=== PATIENT | male | born 1940 | race Caucasian/White ===

== ENCOUNTER 2019-06-15 12:38 | Emergency (ER) | payer MEDICARE, SELFPAY ==
--- NOTE | ~2019-06-15 | XR_ITS ---
EXAMINATION: XR knee RT 3V DATE: 06/15/2019 13:19 INDICATION: Right knee injury. TECHNIQUE: 3 views of right knee were obtained. COMPARISON: None. FINDINGS: Bone alignment is normal. No fracture. There is mild tricompartmental osteoarthritis. There is a small knee joint effusion. IMPRESSION: 1. Mild right knee osteoarthritis. 2. Small right knee joint effusion. Reviewed, dictated and finalized at location A. N SAW OPERATOR
--- NOTE | ~2019-06-15 | XR_ITS ---
XR shoulder RT min 2V DATE: 06/15/2019 13:19 INDICATION: Fall. Right shoulder injury, pain TECHNIQUE: 4 views COMPARISON: None FINDINGS: No fracture or dislocation, periosteal reaction or bone destruction or abnormal soft tissue calcification. There is degenerative change of the acromion clavicular joint. IMPRESSION: No fracture or dislocation Reviewed, dictated and finalized at location B. ING ROOM OPERATOR IMPRESSION: No fracture or dislocation
--- NOTE | ~2019-06-15 | XR_ITS ---
EXAMINATION: XR chest 2V DATE: 06/15/2019 14:04 INDICATION: Fall. TECHNIQUE: Frontal and lateral views of the chest were obtained. COMPARISON: Chest 2 views 09/30/2017 FINDINGS: Calcified pulmonary nodules are consistent with old granulomatous disease. No pleural effus ion or pneumothorax. The heart size is normal. IMPRESSION: 1. No acute cardiopulmonary disease. Reviewed, dictated and finalized at location A. N ASSEMBLY MACHINE SET UP MECHANIC
--- NOTE | ~2019-06-15 | XR_ITS ---
EXAMINATION: XR hip RT min 3V w AP pelvis DATE: 06/15/2019 14:04 INDICATION: Right hip pain. Fall. TECHNIQUE: An anteroposterior view of the pelvis and 3 views of right hip were obtained. COMPARISON: Pelvis and left hip radiographs 08/07/2018 FINDINGS: There is lumbar dextroscoliosis and severe spondylosis. No fracture. There is moderate oste oarthritis of the hips. Surgical clips overlie the scrotum. IMPRESSION: 1. Moderate osteoarthritis of the hips. Reviewed, dictated and finalized at location A. [employer] OFFICER
[2019-06-15 12:50] VITALS: BP 115/63; PULSE 66; RESP 16; TEMP 37.2; O2SAT 100
--- NOTE | 2019-06-15 14:36 | ED.FALL ---
HPI - Fall General Chief Complaint: Fall Stated Complaint: fall, right arm, right shoulder, right leg pain Time Seen by Provider: 06/15/19 13:27 Source: patient and family Mode of arrival: wheelchair Limitations: dementia History of Present Illness HPI Narrative: This is a 78 year old male that presents to the ER after a fall last night. Patient with history of Parkinson's and dementia. Patient is supposed to use a walker, but was not using it last night. Reports he got up in the middle of the night to use the restroom and lost his balance. Patient's found him lying on the floor on his right side. Denies any head trauma. Patient did not lose consciousness. Since the fall he had been complaining of some pain in his right shoulder. also reports he was having some trouble walking. Denies vision changes, vomiting, numbness or weakness. Related Data Home Medications Medication Instructions Recorded Confirmed aspirin 81 mg tablet,delayed 81 mg PO DAILY 03/09/19 release latanoprost 0.005 % eye drops 1 drop EACH EYE QPM 03/09/19 melatonin 3 mg capsule 6 mg PO DAILY PRN cap 03/09/19 memantine 10 mg tablet 10 mg PO BID 03/09/19 carbidopa 25 mg-levodopa 100 mg 2 tablet PO TID tablet 03/13/19 tablet donepezil 10 mg tablet 10 mg PO QAM tablet 06/12/19 lisinopril 10 mg tablet 5 mg PO DAILY tablet 06/12/19 quetiapine 25 mg tablet 25 mg PO BID tablet 06/12/19 06/12/19 Allergies Allergy/AdvReac Type Severity Reaction Status Date / Time oxycodone Allergy Unknown Unknown Verified 06/12/19 17:01 Review of Systems Review of Systems: Narrative: CONSTITUTIONAL: Denies fever EYES: Denies visual changes CARDIOVASCULAR: Denies chest pain RESPIRATORY: Denies dyspnea. GASTROINTESTINAL: Denies vomiting MUSCULOSKELETAL: Reports joint pain and myalgia. Denies back pain NEUROLOGIC: Denies headache, numbness, or weakness. All systems reviewed & are unremarkable except as noted in HPI and below PMFSH Past Medical History Medical History (Updated 06/15/19 @ 14:52 by Wandy De Santiago PA-C) History of Parkinson's disease Hypertension Surgical History Surgical History (Updated 06/12/19 @ 17:07 by Umm King CMA) History of prostate surgery Previous back surgery Social History Social History (Updated 06/12/19 @ 17:06 by Umm King CMA) Smoking status: Former smoker Second hand tobacco smoke exposure: No Smoking end date: 04/26/78 Alcohol intake: current Substance use: never Substance use type: does not use Gender identity (if verbalized by the patient): Male Spiritual care concerns: Yes Agree to blood products: Yes Exam Narrative: Exam Narrative: GENERAL: Elderly, well-nourished, and in no acute distress. HEAD: Normocephalic, atraumatic. EYES: PERRLA and EOMI. ENT: Nares clear, no rhinorrhea or epistaxis. Mucous membranes moist. Oropharynx without tonsillar hypertrophy exudate or other lesions. Bilateral TMs pearly mari non-bulging NECK: Supple. No adenopathy or masses. No midline spinal tenderness CHEST: Clear to auscultation. No respiratory distress. No wheezes rales or rhonchi HEART: Regular rate and rhythm. No murmur heard. Normal peripheral pulses. ABDOMEN: Soft, nontender, nondistended, normal active bowel sounds. BACK: No midline spinal tenderness EXTREMITIES: Normal range of motion. No edema or obvious deformity. SKIN: Warm, dry, no rash. NEURO: No focal deficits. Alert and oriented x3. CN II-XII grossly intact PSYCH: Normal mood and affect Course Vital Signs Vital signs: Vital Signs Temperature 98.9 F 06/15/19 12:50 Pulse Rate 66 06/15/19 12:50 Respiratory Rate 16 06/15/19 12:50 Blood Pressure 115/63 06/15/19 12:50 Pulse Oximetry 100 06/15/19 12:50 Temperature 98.9 F 06/15/19 12:50 Pulse Rate 66 06/15/19 12:50 Respiratory Rate 16 06/15/19 12:50 Blood Pressure 115/63 06/15/19 12:50 Pulse Oximetry 100 06/15/19 12:50 MDM - Fal
[2019-06-15 15:10] VITALS: BP 164/48; PULSE 65; RESP 16; TEMP 37.4; O2SAT 100
== END 2019-06-15 15:11 | disposition home or self-care (01) ==
PROVIDERS: Emergency Provider Emergency Medicine; PCP Family Medicine
DX: M25.511 Pain in right shoulder (principal); G20 Parkinson's disease; F03.90 Unspecified dementia, unspecified severity, without behavioral disturbance, psychotic disturbance, mood disturbance, and anxiety; I10 Essential (primary) hypertension; Z87.891 Personal history of nicotine dependence; M17.11 Unilateral primary osteoarthritis, right knee; M16.0 Bilateral primary osteoarthritis of hip; W18.39XA Other fall on same level, initial encounter
CPT/HCPCS: 71046; 73030; 73502; 73562; 99284

== ENCOUNTER → 2019-06-27 13:16 | Outpatient (CLI) | payer MEDICARE, SELFPAY ==
--- NOTE | ~2019-06-27 | US_ITS ---
US renal BI 06/27/2019 13:41 Procedure: Realtime transabdominal ultrasound of the kidneys and bladder. Indication: Abnormal renal function tests. Hypertension. Comparison: No prior studies for comparison. Findings: Renal echotexture is normal bilaterally without hydronephrosis, contour deforming mass or r enal calculus. There is a cyst at the lower pole of the left kidney measuring 2.8 cm maximum dimensio n. There is mild left hydronephrosis. The right kidney measures 10.1 cm and left kidney measures 10.9 cm. Bladder within normal limits. Impression: 1: Mild left hydronephrosis. 2: Left renal cyst measuring 2.8 cm. Reviewed, dictated and finalized at location B. ICAL WRITER Impression: 1: Mild left hydronephrosis. 2: Left renal cyst measuring 2.8 cm.
== END ==
PROVIDERS: PCP Family Medicine; Visit Provider Internal Medicine Nephrology
DX: R94.4 Abnormal results of kidney function studies (principal); N28.1 Cyst of kidney, acquired
CPT/HCPCS: 76775

== ENCOUNTER 2019-12-14 11:00 | Outpatient (RCR) | payer MEDICARE, SELFPAY ==
--- NOTE | 2019-11-07 16:00 | LSVTBIG ---
PHYSICAL THERAPY EVALUATION Thank you for referring Woody Wright to [facility]. I recommend Woody participate in LSVT BIG program 2x/week for PT for 4 weeks. Please review, sign, date and return this plan of care MOHINI. I agree with and certify that the following plan of care is medically necessary. 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 he does have some dementia at this time, but remembers everything about the telephones. He fell 2 years ago in August from which he recovered really well. Six months after that he started to experience severe back pain and went to chiropractor. He recovered from that and then started back at [facility]. A month later his back started to hurt again and he went to [facility] for a month of therapy and recovered from that as well. Then the following summer he started to go to [facility] 3x/week for a senior fitness program ( 30minutes) and Denisse reports he did really well with that program. Covid-19 came along and he was no longer able to attend [employer] classes and since then he has deteriorated mentally and physically. Denisse reports that she does not let him do a lot at home out of fear of him fall or hurting himself.
--- NOTE | 2019-11-07 16:05 | LSVTBIG ---
OCCUPATIONAL THERAPY LSVT EVALUATION REPORT 11/07/2019 Thank you for referring Woody Wright to [facility]. LSVT BIG treatment to begin week of 11/20/2019 due to scheduling. Plan 2x/week for 4 weeks. Please review, sign, date and return this plan of care MOHINI. I agree with and certify that the following plan of care is medically necessary. Referring Physician Date Admitting Provider: Attending Provider: Francisco Bain MD Referring Provider: *LSVT BIG Evaluation Start: 11/07/19 13:44 Therapy Discipline Therapy Discipline Therapy Discipline Occupational Therapy Therapy Assessment Status Assessment Status Assessment Status Evaluation Outpatient Past Medical History Neurological History Hx Dementia Yes Hx Parkinson's Disease Yes: For about 8-9 years Cardiovascular History Hx Hypertension Yes Musculoskeletal History Hx Degenerative Disk Disease Yes: low back pain Evaluation Information Problem Diagnosis Parkinson's Disease Onset 9 years Subjective Information Worked at [employer] [employer] [facility] [employer] Query Text:As 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 he does have some dementia at this time, but remembers everything about the telephones. He fell 2 years ago in August from which he recovered really well. Six months after that he started to experience severe back pain and went to chiropractor. He recovered from that and then started back at [facility]. A month later his back started to hurt again and he went to [facility] for a month of therapy and recovered from that as well. Then the following summer he started to go to [facility] 3x/week for a senior fitness program ( 30minutes) and Denisse reports he did really well with that program. Covid-19 came along and he was no longer able to attend [employer] classes and since then he has deteriorated
--- NOTE | 2019-12-12 11:56 | LSVTBIG ---
PHYSICAL THERAPY DISCHARGE NOTE Thank you for referring Woody Wright to [facility].? Please review, sign, date and return this plan of care MOHINI. I agree with and certify that the following plan of care is medically necessary. Referring Physician Date Attending Provider: Francisco Bain MD Discharge Diagnosis Parkinson's Disease Onset 9 years Subjective Information Caregiver from [facility] Query Text:As Reported By Patient/ attends appt with him today. Family Reports that exercises are going well at home. They adjust exercises as needed to accomodate Noah's level of awareness and frustrating in that day. Pain Score Pain Score 0: Self Report Additional Pain Score Comments shoulders are sore Balance Assessment Borrero Balance Assessment Sitting to Standing Independent w/Hands Unsupported Stance Ability Safely- 2 minutes Sitting Unsupported, Feet on Floor Safely- 2 minutes Standing to Sitting Safely, Minimal Hand Use Transfer Ability Safely, Minimal Hand Use Unsupported Stance- Eyes Closed Supervision, 10 seconds Unsupported Stance- Feet Together Independent, 1 minute Reaching Forward while Standing Supervision Needed concrete pouring supervisor Object From Floor Supervision Look Behind Shoulder - Standing Turns Sideways Only Turning 360 Degrees Supervision/Verbal Cues Unsupported Stance, Alternating Feet on 4 Steps w/Supervision Stair Unsupported Tandem Stance Assist to Step-15 seconds Unilateral Leg Stance Lifts Leg/Unable to Hold BORRERO Balance Evaluation Total Score (/56 37 points) Time Up Go (TUG) Timed Up and Go Test (TUG) (Seconds) 24 Assistive Devices Cane, Straight Comments 1month ago = 21seconds 5 Time Sit to Stand Time in Seconds 25.35 5 Time Sit to Stand Comments 1month ago = 26.93 Query Text:Normative Data: If Greater Than 15 Seconds, 74% Increase Risk for Recurrent Falls Gait Assessment 6 Minute Walk Total Distance (feet) 572 6 Minute Walk Gait Speed Score (feet/ 1.58 second) Number of Breaks During Test 2 6 Minute Gait Comments had a more difficult time maintaing gait speed and had to stop test at 4min 30seconds PT Clinical Summary Noah is here today after participating in 4 weeks of physical therapy LSVT BIG program. He has improved in ability to follow direction
--- NOTE | 2019-12-14 11:47 | LSVTBIG ---
OCCUPATIONAL THERAPY DISCHARGE NOTE 12/14/2019 Thank you for referring Woody Wright to [facility].? The patient is being discharged from skilled OT at this time. Please review, sign, date and return this d/c note MOHINI. I agree with and certify that the following plan of care is medically necessary. Referring Physician Date Referring Provider: Francisco Bain MD Evaluation Information Problem Diagnosis Parkinson's Disease Onset 9 years Additional Evaluation Detail Noah has participated in outpatient treatment for LSVT program for PD. Barriers to optimal program delivery and performance include patient's cognitive limitations with memory. Subjective Information Caregiver from [facility] Query Text:As Reported By Patient/ attends appt with him today. Family She reports that he is doing better with walking and that he does well with simple cues of Big walking and Big posture . Pain Assessment Pain Scale Pain Scale Used Numeric (1 - 10) Self Report Pain Assessment Bilateral Arm(s) Reported Pain Level 2 Pain Description Soreness Pain Score Pain Score 2: Self Report ADL Assessment ADL Assessment Timed Dressing Tasks Patient able to button and unbutton 4 buttons in 97 seconds. Needs cues to line up buttons properly. Timed Handwriting Handwriting tasks compared to the initial evaluation show no change in size or legibility. Timed Mobility Related Task Patient able to complete simulated ADL task of picking up sticks from the yard with stand-by assist. Did not completed timed. He reports feeling somewhat unsteady. 9-Hole Peg Hand Test Interpretation Moderately Below Normal Comments (R) hand 63 seconds; (L) hand 78 seconds ADL Assessment Comments Caregiver reports improved independence with buttoning. She states she only has to do the top button and occasionally the bottom button. Patient completes 9-hole peg witht he right hand 16 seconds faster, with the lef
== END 2020-01-22 15:11 | disposition home or self-care (01) ==
LOC: ANHOT 11:00
PROVIDERS: PCP Family Medicine; Visit Provider Psychiatry & Neurology Neurology
DX: G20 Parkinson's disease (principal); R26.9 Unspecified abnormalities of gait and mobility
CPT/HCPCS: 97110; 97162; 97165

== ENCOUNTER 2019-12-20 09:04 | Inpatient (IN) | payer MEDICARE, SELFPAY ==
[2019-12-20] VITALS (10 sets, daily range): BP systolic 127–164; BP diastolic 58–83; PULSE 60–104; RESP 12–28; TEMP 36.9–37.8; O2SAT 97–100; BMI 21.2
--- NOTE | ~2019-12-20 | XR_ITS ---
EXAMINATION: XR chest 1V DATE: 12/20/2019 09:48 INDICATION: Weakness TECHNIQUE: frontal view of the chest was obtained. COMPARISON: Chest radiograph dated 06/15/2019 FINDINGS: Kensinger few scattered bilateral calcified pulmonary nodules consistent with old granulomatous disea se. No other airspace opacities, pulmonary edema, pleural effusion or pneumothorax. The cardiomediast inal silhouette is normal. Old healed fracture deformity at the lateral left clavicle. IMPRESSION: 1. No acute cardiopulmonary disease. Reviewed, dictated and finalized at location A.
--- NOTE | ~2019-12-20 | CT_ITS ---
EXAMINATION: CT brain wo con DATE: 12/20/2019 09:45 INDICATION: Weakness and confusion TECHNIQUE: Computed tomography (CT) of the head was performed without intravenous contrast. Sagittal and coronal reconstructions were performed. The mA was adjusted according to patient size. Iterative reconstruction technique was employed. The dose-length product was 681.00 mGy-cm. COMPARISON: head CT dated 04/28/2018 FINDINGS: No acute intracranial hemorrhage, acute infarction or abnormal extra axial fluid collection. There is mild scattered white matter hypoattenuation consistent with chronic small vessel ischemic disease. S ymmetric prominence of the sulci and ventricles consistent with moderate age-appropriate diffuse cere bral volume loss. No mass/mass effect. Mucous retention cyst in the left maxillary sinus. Changes of bilateral intraocular lens replacement. Mastoid air cells and middle ear cavities are clear. Intracra nial calcified cerebral atherosclerosis is noted. IMPRESSION: 1. No acute intracranial process. 2. Age-related changes including moderate diffuse volume loss and mild scattered white matter hypoatt enuation consistent with chronic small vessel ischemic disease. Reviewed, dictated and finalized at location A. IMPRESSION: 1. No acute intracranial process. 2. Age-related changes including moderate diffuse volume loss and mild scattere d white matter hypoattenuation consistent with chronic small vessel ischemic di sease.
--- NOTE | ~2019-12-20 | CT_ITS ---
EXAMINATION: CT abdomen pelvis wo con DATE: 12/20/2019 11:26 INDICATION: Hematuria. TECHNIQUE: Computed tomography (CT) of the abdomen and pelvis was performed without intravenous contr ast. Automated exposure control and iterative reconstruction technique were employed. The dose-length product was 486.92 mGy-cm. COMPARISON: Lumbar spine CT 08/07/2018 FINDINGS: The visualized portions of the lung bases demonstrate mild atelectasis. Calcified pulmonary nodules and calcified right hilar and mediastinal lymph nodes are consistent with old granulomatous disease. No pleural effusion. The heart size is normal. There are coronary artery calcifications. No pericardial effusion. Calcifications in the liver and spleen are consistent with old granulomatous di sease. There are gallstones in the gallbladder, which is normal in size. The pancreas and adrenal gla nds are normal. There are peripelvic cysts in the kidneys measuring up to 3.8 cm on the left. There i s no urolithiasis. There is diffuse bladder wall thickening, likely secondary to chronic outlet obstr uction from the moderately enlarged prostate. There is edema around the bladder. There are no dilated loops of bowel. The appendix is not visualized. There are no pathologically enlarged lymph nodes. Th ere are no pathologically enlarged lymph nodes. There is trace ascites. There is a small right inguin al hernia containing fat. There is lumbar levoscoliosis and severe spondylosis. There are bridging en dplate osteophytes at multiple levels in the thoracic spine, consistent with diffuse idiopathic skele alcides hyperostosis (DISH). IMPRESSION: 1. No urolithiasis. 2. Chronic diffuse bladder wall thickening, likely secondary to chronic outlet obstruction from the m oderately enlarged prostate. Reviewed, dictated and finalized at location B. IMPRESSION: 1. No urolithiasis. 2. Chronic diffuse bladder wall thickening, likely secondary to chronic outlet obstruction from the moderately enlarged prostate.
--- NOTE | ~2019-12-20 | XR_ITS ---
MODIFIED ESOPHAGRAM HISTORY: Dysphagia. TECHNIQUE: Modified barium esophagram was performed on 12/21/2019. I administered fluoroscopy and perf ormed the exam with speech pathologist. Patient was seated for lateral fluoroscopic imaging for rut stion of thin liquids, pudding, solids and quantified amounts, followed by thin liquids in uncontroll ed amounts. This was recorded on tape. A single fluoroscopic spot image was also recorded. The DAP fo r this procedure was 5.66 Gycm2. The amount of fluoroscopy time used during this procedure was 6.0 mi nutes. FINDINGS: Oral stage: Adequate function. Pharyngeal stage: There is laryngeal penetration and silent aspiration. There is residual in the vall ecula and piriform sinuses. Cervical/esophageal stage: Adequate function. IMPRESSION: Laryngeal penetration and silent aspiration. Please correlate with speech pathologist fi ndings and specific feeding recommendations. Reviewed, dictated and finalized at location A. IMPRESSION: Laryngeal penetration and silent aspiration. Please correlate with speech pathologist findings and specific feeding recommendations.
--- NOTE | 2019-12-20 09:08 | ECG_ITS ---
Measurements Intervals [place] Rate: 61 P: 48 DE: 148 QRS: -16 QRSD: 109 T: 32 QT: 406 QTc: 412 Interpretive Statements SINUS RHYTHM BASELINE ARTIFACT- V3 NORMAL ECG Electronically Signed On 12-20-2019 10:13:37 CDT by Raj Pablo D.O.
--- NOTE | 2019-12-20 09:20 | ED.AMS ---
HPI - Altered Mental Status General Chief Complaint: Weakness Stated Complaint: Weakness Time Seen by Provider: 12/20/19 09:07 Source: family Mode of arrival: ambulatory Limitations: dementia History of Present Illness HPI narrative: This patient is an 79 year old male with history of Dementia and hypertension who presents for evaluation of altered mental status. PAtient's daughter reports over the past 1 week patient has been more confused. She reports he knows his home and he was stating that he was skiing today. She also noticed that he appears weak and having difficulty standing. His urine has been dark so she is concerned about a uti or dehydration. Related Data Home Medications Medication Instructions Recorded Confirmed aspirin 81 mg tablet,delayed 81 mg PO DAILY 03/09/19 12/20/19 release melatonin 3 mg capsule 6 mg PO DAILY PRN cap 03/09/19 12/20/19 memantine 10 mg tablet 10 mg PO BID 03/09/19 12/20/19 carbidopa 25 mg-levodopa 100 mg 2 tablet PO TID tablet 03/13/19 12/20/19 tablet donepezil 10 mg tablet 10 mg PO QAM tablet 06/12/19 12/20/19 quetiapine 25 mg tablet 25 mg PO BID tablet 06/12/19 12/20/19 docusate sodium [Colace] 100 mg PO DAILY 12/20/19 12/20/19 sennosides-docusate sodium 1 tab-cap PO HS 12/20/19 12/20/19 [Senna-S] Allergies Allergy/AdvReac Type Severity Reaction Status Date / Time No Known Allergies Allergy Verified 12/20/19 14:01 Review of Systems Review of Systems: ROS unobtainable: Yes unobtainable due to mental status Constitutional: Constitutional: Denies chills, Denies fever(s) and Reports weakness PMFSH Past Medical History Medical History (Updated 12/20/19 @ 19:10 by Chitra So MD) Dementia History of Parkinson's disease Hypertension Impaired mobility and ADLs Recurrent falls Surgical History Surgical History History of prostate surgery Previous back surgery Social History Social History Smoking status: Never smoker Second hand tobacco smoke exposure: No Smoking end date: 04/26/78 Alcohol intake: never Substance use: never Substance use type: does not use Gender identity (if verbalized by the patient): Male Spiritual care concerns: No Agree to blood products: Yes Exam Const: General: no acute distress and alert Other: oriented to person and place HENMT: Head: normocephalic and atraumatic Face and sinus: face symmetric Mouth: Yes Normal oral and palatal mucosa present and Yes oropharynx normal Eyes: Pupils: Equal, round and reactive pupils present EOM: EOMs intact bilaterally Neck: Neck: normal visual inspection and no lymphadenopathy Resp: Effort & Inspection: normal respiratory effort, no retractions and no use of accessory muscles Auscultation: clear to auscultation bilaterally Cardio: Rate: regular rate Rhythm: regular rhythm Heart sounds: no murmurs GI: GI Palp: Yes Soft to palpation, No Tenderness to palpation present (GI), No Guarding due to palpation present (GI), No Rigid due to palpation and No Hernia present Skin: General skin exam: normal color Neuro: General: moves all extremities, no meningeal signs and CN's II-XI intact bilaterally Psych: Mental Status: mental status grossly normal Course Consultations Consultation #1: I discussed Dr. Haq that patient will need to be admitted for acute renal failure hydration and UTI with confusion. Date: 12/20/19 Time: 10:45 Vital Signs Vital signs: Vital Signs Temperature 98.5 F 12/20/19 09:08 Pulse Rate 63 12/20/19 09:08 Respiratory Rate 28 H 12/20/19 09:08 Blood Pressure 153/71 H 12/20/19 09:08 Pulse Oximetry 98 12/20/19 09:08 Temperature 99.4 F 12/20/19 14:00 Pulse Rate 104 H 12/20/19 14:00 Respiratory Rate 18 12/20/19 14:00 Blood Pressure 136/71 12/20/19 14:00 Pulse Oximetry 97 12/20/19 14:00
[2019-12-20 09:39] LABS: Basophils Percent Auto 0.3 % (0.2-1.2); Eosinophils Percent Auto 0.3 % (0-4.4); Hematocrit 42.2 % (42.0-52.0); Hemoglobin 13.9 g/dL (14.0-18.0); Immature Granulocyte Absolute 0.03 K/mm3 (0.00-0.031); Immature Granulocyte Percent A 0.4 % (0-0.5); Lymphocytes Absolute Auto 0.47 K/mm3 (0.9-3.2); Lymphocytes Percent Auto 5.9 % (18.3-44.2); Mean Corpuscular HGB Conc 32.9 g/dl (32-36); Mean Corpuscular Hemoglobin 29.6 pg (26-34); Monocytes Absolute Auto 0.8 K/mm3 (0.1-0.6); Monocytes Percent Auto 9.8 % (2.6-8.5); Neutrophils Absolute Auto 6.6 K/mm3 (1.3-6.7); Neutrophils Percent Auto 83.3 % (45.5-73.1); Platelet Count Result 221 k/mm3 (150-375); Red Blood Count 4.69 M/mm3 (4.6-6.20); Red Cell Distribution Width 12.9 % (11.5-14.5); White Blood Count 7.9 K/mm3 (4.5-10.0)
[2019-12-20 09:45] LABS: Add Urine Microscopic? YES; Appearance Urine Cloudy (Clear); Bilirubin Urine Negative (Negative); Blood Urine 3+ (Negative); Color Urine Red (Yellow); Glucose Urine UA Negative (Negative); Ketones Urine Trace mg/dL (Negative); Leukocyte Esterase Ur 3+ LEU/UL (Negative); Mucus Urine Few /lpf; Nitrate Urine Negative (Negative); Protein Urine 2+ mg/dL (Negative); RBC Urine >75 /hpf (0-2); Specific Grav Ur 1.016 (1.001-1.035); Urobilinogen Urine Negative mg/dL (<2.0); WBC Urine >75 /hpf
[2019-12-20 09:49] LABS: INR 1.2; Partial Thromboplastin Time 32.3 SECONDS (22.3-36.8)
[2019-12-20 09:55] LABS: Albumin Level 3.7 g/dL (3.5-5.1); Alkaline Phosphatase 81 U/L (38-126); Anion Gap 7 mmol/L (8-16); Aspartate Amino Transferase 15 U/L (17-59); Bilirubin,Total 0.7 mg/dL (0.2-1.3); Blood Urea Nitrogen 30 mg/dL (9-20); Calcium 8.6 mg/dL (8.4-10.2); Carbon Dioxide 25 mmol/L (22-30); Chloride 109 mmol/L (98-107); Estimated CRCL calculation 29 ml/min; Estimated Glomerular Filt Rate 42; Glucose 137 mg/dL (75-110); Magnesium 2.1 mg/dL (1.6-2.3); Potassium 4.2 mmol/L (3.4-5.0); Sodium 141 mmol/L (137-145)
[2019-12-20 10:07] LABS: Alanine Aminotransferase < 6 U/L (4-50)
[2019-12-20] MEDS: SODIUM CHLORIDE 0.9% IV 1,000 ML 999 ML IV CONT (10:13)
--- NOTE | 2019-12-20 11:21 | PC.NURSE ---
Pt to CT scan via stretcher.
--- NOTE | 2019-12-20 13:21 | ADMGEN ---
This patient, Woody Wright, was admitted to Medical Room 340-01. Patient/family oriented to hospital policies and general routines including ID bracelet, bed and alarms, visiting hours, pain management, procedures, bathroom and other care routines, personal items, smoking policy, room service/diet, and visiting hours. Valuables list has been completed. Information on how to activate the Rapid Response Team has been discussed. Patient/Family are encouraged to report perceived risks to care and to ask questions if they do not understand what they are told or what they should do.
[2019-12-20] MEDS: SODIUM CHLORIDE 0.9% IV 1,000 ML 125 ML IV CONT ×2 (14:24→22:23)
--- NOTE | 2019-12-20 21:30 | PM.IMHP ---
H&P: HPI History of Present Illness Date/Time: 12/20/19 21:30 Chief complaint: Weakness and confusion. Narrative: Woody Wright is an 79-year-old male with Parkinson's, dementia, hypertension,and history of falls who presented to the emergency department earlier today via private vehicle from home for evaluation of weakness and confusion. Given his dementia he is unable to provide an accurate medical history and as such a majority of this history is obtained via a review of his electronic medical records. According to the patient's daughter, he has become noticeably more weak and confused since last Wednesday. He has been requiring help due to difficulty standing and today he told his family members that he had been out skiing. Family members were concerned that he perhaps had a urinary tract infection as they noticed his urine was somewhat darker than usual. At the time my evaluation he is resting comfortably and has no complaints, although again he is confused and cannot really provide much in the way of history. He does deny fever, chills, sweats, chest pain, shortness of breath, nausea, vomiting, abdominal pain, dysuria, hematuria (although he had hematuria on presentation), and diarrhea However his answers are unreliable given his dementia and increasing confusion. Review of Systems Review of Systems: Narrative: A review of systems is unable to be obtained accurately given his dementia and increased confusion. [facility] Past Medical History Medical History (Updated 12/20/19 @ 22:31 by Mirtha Rojo PA-C) Chronic kidney disease, stage 3 Baseline creatinine is 1.30. 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 Surgical History Surgical History (Updated 12/20/19 @ 22:26 by Mirtha Rojo PA-C) History of bilateral cataract extraction History of prostate surgery Previous back surgery Family History Family History Father Hypertension Grandparent Family history of Alzheimer's disease Mother Family history of Alzheimer's disease Social History Social History (Updated 12/20/19 @ 22:26 by Mirtha Rojo PA-C) Social History: Surrogate decision maker: Cecy Wright, . Code status: Full code. Smoking status: Never smoker Second hand tobacco smoke exposure: No Smoking end date: 04/26/78 Alcohol intake: never Substance use: never Substance use type: does not use Additional living arrangements comments: Resides with his spouse in [place]. Occupation/Education: retired Gender identity (if verbalized by the patient): Male Spiritual care concerns: No Agree to blood products: Yes Meds Home Medications and Allergies Home Medications Medication Instructions Recorded Confirmed Type aspirin 81 mg tablet,delayed 81 mg PO DAILY 03/09/19 12/20/19 History release melatonin 3 mg capsule 6 mg PO DAILY PRN cap 03/09/19 12/20/19 History memantine 10 mg tablet 10 mg PO BID 03/09/19 12/20/19 History carbidopa 25 mg-levodopa 100 mg 2 tablet PO TID tablet 03/13/19 12/20/19 History tablet donepezil 10 mg tablet 10 mg PO QAM tablet 06/12/19 12/20/19 History quetiapine 25 mg tablet 25 mg PO BID tablet 06/12/19 12/20/19 History lisinopril 10 mg tablet 5 mg PO DAILY #90 tablet 09/19/19 12/20/19 Rx docusate sodium [Colace] 100 mg PO DAILY 12/20/19 12/20/19 History sennosides-docusate sodium 1 tab-cap PO HS 12/20/19 12/20/19 History [Senna-S] Allergies Allergy/AdvReac Type Severity Reaction Status Date / Time No Known Allergies Allergy Verified 12/20/19 14:01 Vital Signs Vital Signs - 24 hr 12/20/19 09:08 12/20/19 09:13 12/20/19 10:12 Temperature 98.5 F Pulse Rate 63 62 65 Res
[2019-12-21] VITALS (7 sets, daily range): BP systolic 112–157; BP diastolic 65–76; PULSE 53–75; RESP 16; TEMP 36.6–36.8; O2SAT 93–99
[2019-12-21 06:24] LABS: Basophils Percent Auto 0.3 % (0.2-1.2); Eosinophils Percent Auto 0.2 % (0-4.4); Hematocrit 37.7 % (42.0-52.0); Hemoglobin 12.4 g/dL (14.0-18.0); Immature Granulocyte Absolute 0.04 K/mm3 (0.00-0.031); Immature Granulocyte Percent A 0.6 % (0-0.5); Lymphocytes Absolute Auto 0.56 K/mm3 (0.9-3.2); Lymphocytes Percent Auto 8.8 % (18.3-44.2); Mean Corpuscular HGB Conc 32.9 g/dl (32-36); Mean Corpuscular Hemoglobin 29.5 pg (26-34); Mean Corpuscular Volume 89.5 fl (80-100); Mean Platelet Volume 9.3 fl (7.4-10.4); Monocytes Absolute Auto 0.7 K/mm3 (0.1-0.6); Monocytes Percent Auto 10.4 % (2.6-8.5); Neutrophils Absolute Auto 5.1 K/mm3 (1.3-6.7); Neutrophils Percent Auto 79.7 % (45.5-73.1); Platelet Count Result 149 k/mm3 (150-375); Red Blood Count 4.21 M/mm3 (4.6-6.20); Red Cell Distribution Width 12.9 % (11.5-14.5); White Blood Count 6.4 K/mm3 (4.5-10.0)
[2019-12-21 06:41] LABS: Alanine Aminotransferase 7 U/L (4-50); Albumin Level 2.9 g/dL (3.5-5.1); Alkaline Phosphatase 68 U/L (38-126); Anion Gap 5 mmol/L (8-16); Aspartate Amino Transferase 18 U/L (17-59); Bilirubin,Total 0.5 mg/dL (0.2-1.3); Blood Urea Nitrogen 24 mg/dL (9-20); Calcium 7.4 mg/dL (8.4-10.2); Carbon Dioxide 25 mmol/L (22-30); Chloride 108 mmol/L (98-107); Estimated CRCL calculation 33 ml/min; Estimated Glomerular Filt Rate 49; Glucose 100 mg/dL (75-110); Magnesium 1.8 mg/dL (1.6-2.3); Potassium 3.8 mmol/L (3.4-5.0); Sodium 138 mmol/L (137-145)
[2019-12-21 08:00] LABS: Thyroid Stimulating Hormone Reflex 0.341 uIU/mL (0.465-4.68)
[2019-12-21] MEDS: CARBIDOPA/LEVODOPA 25/100 MG TABLET 2 TABLET PO ×3 (08:07→17:35)
[2019-12-21] MEDS: MEMANTINE 10 MG TABLET PO ×2 (08:08→17:35)
[2019-12-21] MEDS: QUEtiapine FUMARATE 25 MG TABLET PO ×2 (08:08→17:36)
[2019-12-21] MEDS: DOCUSATE SODIUM 100 MG CAPSULE PO (08:08)
[2019-12-21] MEDS: DONEPEZIL HCL 10 MG TABLET PO (08:08)
[2019-12-21] MEDS: SODIUM CHLORIDE 0.9% IV 1,000 ML 75 ML IV CONT (10:42)
[2019-12-21 10:43] LABS: Free T4 Free Thyroxine Reflex 1.24 ng/dL (0.78-2.19)
--- NOTE | 2019-12-21 13:18 | PM.IMPN ---
Progress Note: A&P Assessment and Plan (1) Urinary tract infection: Code(s): N39.0 - Urinary tract infection, site not specified Status: Acute Assessment and Plan: UA and CT findings consistent with hemorrhagic cystitis. Also findings of chronic outlet obstruction from moderately enlarged prostate. He was not retaining urine according to bladder scan. He has been started on ceftriaxone, pending urine culture; tailor abx to culture results Continue IVF (2) Dehydration: Code(s): E86.0 - Dehydration Status: Acute Assessment and Plan: Appears to have improvement Cautious IV fluid rehydration (3) Chronic kidney disease, stage 3: Code(s): N18.3 - Chronic kidney disease, stage 3 (moderate) Status: Acute Assessment and Plan: Creatinine is 1.40 today; improvement Will avoid nephrotoxic agents continue IV light fluid hydration. Repeat renal function in a.m. (4) Parkinson's disease: Code(s): G20 - Parkinson's disease Status: Acute Assessment and Plan: Continue carbidopa-levodopa. PT/OT ordered (5) Dementia: Code(s): F03.90 - Unspecified dementia without behavioral disturbance Status: Acute Assessment and Plan: He has had increasing confusion, likely due to dehydration and urinary tract infection. Although patient may be at or near baseline after speaking with , Cecy. ST recommends mod barium swallow Pt now NPO; await further rec after mod barium swallow study Continue donepezil, memantine, and quetiapine. (6) Generalized weakness: Code(s): R53.1 - Weakness Status: Acute Assessment and Plan: Secondary to a combination of the above. OT recommends rehab Initiate fall precautions consult PT/OT. wants patient to return to home despite PT/OT rec, but would like to trial PT/OT as outpatient (7) Hypertension: Qualifiers: Hypertension type: essential hypertension Qualified Code(s): I10 - Essential (primary) hypertension Code(s): I10 - Essential (primary) hypertension Status: Acute Assessment and Plan: BP 150s sys this morning Continue to monitor closely as lisinopril is currently on hold given worsening creatinine level. Subjective Date/time seen: 12/21/19 13:18 Interval history: Patient is a 79-year-old male with Parkinson's, dementia (baseline A&O to self, and occasionally his ), hypertension,and history of falls who is here for treatment of UTI, dehydration, and increased weakness. Patient is A&O to self, month/day of , but otherwise is confused. Not a reliable historian, but does having said that, when questioned, he denies f/c/s, cp/palpitations, sob/cough, n/v/d/c, abd pain, changes in BMs, dysuria, hematuria, cloudy urine, calf pain/swelling. Spoke to , Cecy, given patient's mental status, who states he is usually A&O to self, , his address, and occasionally his 's name but has almost no short term memory. She states she would like patient to return home to him at discharge if possible. Review of Systems Review of Systems: ROS unobtainable: Yes unobtainable due to mental status (Please see above; baseline A&O to self and and occasionally wifes name) Exam Narrative: Exam Narrative: General: Patient sitting upright in chair at time of visit; lunch in front of patient. A&O to self, month/day of . Pleasantly confused HEENT: Normocephalic, EOMI, oral mucosa moist. Cardiovascular: Rate and rhythm are regular. No notable murmur, rub, or gallop.
[2019-12-21 13:20] LABS: Total Triiodothyronine (T3) 0.69 NG/ML (0.97-1.69)
--- NOTE | 2019-12-21 18:37 | PCSTNOTE ---
Please refer to the Modified Barium Swallow Evaluation in the EMR.
[2019-12-21] MEDS: SENNA/DOCUSATE SODIUM TABLET 1 TAB PO (21:35)
[2019-12-21] MEDS: MELATONIN 3 MG TABLET 6 MG PO (21:36)
[2019-12-22] MEDS: SODIUM CHLORIDE 0.9% IV 1,000 ML 75 ML IV CONT (00:11)
[2019-12-22 05:18] VITALS: BP 153/73; PULSE 57; RESP 16; TEMP 36.8; O2SAT 98
[2019-12-22 06:17] LABS: Basophils Percent Auto 0.7 % (0.2-1.2); Eosinophils Absolute Auto 0.1 K/mm3 (0-0.3); Eosinophils Percent Auto 1.3 % (0-4.4); Hematocrit 33.9 % (42.0-52.0); Hemoglobin 11.2 g/dL (14.0-18.0); Immature Granulocyte Absolute 0.03 K/mm3 (0.00-0.031); Immature Granulocyte Percent A 0.7 % (0-0.5); Lymphocytes Absolute Auto 0.74 K/mm3 (0.9-3.2); Lymphocytes Percent Auto 16.1 % (18.3-44.2); Mean Corpuscular Hemoglobin 29.6 pg (26-34); Mean Corpuscular Volume 89.7 fl (80-100); Mean Platelet Volume 9.8 fl (7.4-10.4); Monocytes Absolute Auto 0.6 K/mm3 (0.1-0.6); Monocytes Percent Auto 12.6 % (2.6-8.5); Neutrophils Absolute Auto 3.2 K/mm3 (1.3-6.7); Neutrophils Percent Auto 68.6 % (45.5-73.1); Platelet Count Result 172 k/mm3 (150-375); Red Blood Count 3.78 M/mm3 (4.6-6.20); Red Cell Distribution Width 13.1 % (11.5-14.5); White Blood Count 4.6 K/mm3 (4.5-10.0)
[2019-12-22 06:29] LABS: Potassium 3.6 mmol/L (3.4-5.0)
[2019-12-22 07:24] LABS: Albumin Level 2.7 g/dL (3.5-5.1); Alkaline Phosphatase 62 U/L (38-126); Anion Gap 5 mmol/L (8-16); Aspartate Amino Transferase 21 U/L (17-59); Bilirubin,Total 0.3 mg/dL (0.2-1.3); Blood Urea Nitrogen 21 mg/dL (9-20); Calcium 7.3 mg/dL (8.4-10.2); Carbon Dioxide 24 mmol/L (22-30); Chloride 110 mmol/L (98-107); Estimated CRCL calculation 36 ml/min; Estimated Glomerular Filt Rate 53; Glucose 105 mg/dL (75-110); Magnesium 1.9 mg/dL (1.6-2.3); Sodium 139 mmol/L (137-145)
[2019-12-22 07:28] LABS: Alanine Aminotransferase < 6 U/L (4-50)
[2019-12-22] MEDS: CARBIDOPA/LEVODOPA 25/100 MG TABLET 2 TABLET PO ×3 (10:20→17:07)
[2019-12-22] MEDS: QUEtiapine FUMARATE 25 MG TABLET PO ×2 (10:21→17:08)
[2019-12-22] MEDS: DONEPEZIL HCL 10 MG TABLET PO (10:21)
[2019-12-22] MEDS: DOCUSATE SODIUM 100 MG CAPSULE PO (10:21)
[2019-12-22] MEDS: MEMANTINE 10 MG TABLET PO ×2 (10:21→17:08)
--- NOTE | 2019-12-22 12:33 | PM.IMPN ---
Progress Note: A&P Assessment and Plan (1) Urinary tract infection: Code(s): N39.0 - Urinary tract infection, site not specified Status: Acute Assessment and Plan: UA and CT findings consistent with hemorrhagic cystitis. Also findings of chronic outlet obstruction from moderately enlarged prostate. He was not retaining urine according to bladder scan. Called Lab this morning about pending UCx and they state an inadequate specimen was collected in ER; ER was notified at that time but did not recollect a specimen. Repeat Ucx today He has been started on ceftriaxone, pending urine culture; tailor abx to culture results (2) Dehydration: Code(s): E86.0 - Dehydration Status: Acute Assessment and Plan: Appears to have improvement Cautious IV fluid rehydration if resumed (3) Chronic kidney disease, stage 3: Code(s): N18.3 - Chronic kidney disease, stage 3 (moderate) Status: Acute Assessment and Plan: Creatinine is 1.30 today; improvement Will avoid nephrotoxic agents Will d/c IVF today Repeat renal function in a.m. (4) Parkinson's disease: Code(s): G20 - Parkinson's disease Status: Acute Assessment and Plan: Continue carbidopa-levodopa. PT/OT ordered (5) Dementia: Code(s): F03.90 - Unspecified dementia without behavioral disturbance Status: Acute Assessment and Plan: He has had increasing confusion, likely due to dehydration and urinary tract infection. Although patient may be at or near baseline after speaking with , Cecy. ST recommends NPO diet given Mod barium swallow study. Please see HPI as patient's wishes to proceed with diet despite ST findings; aware of asp pneumonia Will resume soft diet with mod thickened liquids per family request Continue donepezil, memantine, and quetiapine. (6) Generalized weakness: Code(s): R53.1 - Weakness Status: Acute Assessment and Plan: Secondary to a combination of the above. Therapy rec rehab. Initiate fall precautions Continue PT/OT wishes to speak with CC about possible SNF; CC following (7) Hypertension: Qualifiers: Hypertension type: essential hypertension Qualified Code(s): I10 - Essential (primary) hypertension Code(s): I10 - Essential (primary) hypertension Status: Acute Assessment and Plan: BP 150s sys this morning Continue to monitor closely as lisinopril is currently on hold given worsening creatinine level. Consider resuming lisinopril (8) At risk for aspiration pneumonia: Code(s): Z91.89 - Other specified personal risk factors, not elsewhere classified Status: Acute Assessment and Plan: ST does not recommend resuming diet at this time and recommends ST rehab. understand risk of silent aspiration, aspiration pneumonia and risk of subsequent complications. wishes to advance diet to make him more comfortable. Encouraged f/u with Dr. Bain for further discussions of shelter care Advance diet to soft, mod thickened liquid diet Monitor closely Subjective Date/time seen: 12/22/19 12:33 Interval history: Patient is a 79-year-old male with Parkinson's, dementia (baseline A&O to self, and occasionally his 's name), hypertension,and history of falls who is here for treatment of UTI, dehydration, and increased weakness. Patient is A&O to self and but otherwise is pleasantly confused; appears to give part of his home address, but trails off. Not a reliable
[2019-12-22 14:00] VITALS: BP 158/74; PULSE 72; RESP 14; TEMP 36.8; O2SAT 98
[2019-12-22] MEDS: SENNA/DOCUSATE SODIUM TABLET 1 TAB PO (20:11)
--- NOTE | 2019-12-22 20:19 | PC.NURSE ---
Patient found standing in room doorway unclothed. Patient was toileted then redirected by this nurse back to bed and reoriented to situation. Rails were elevated and bed placed on zone 2. Alarm found to be off due to patients family previously at bedside. Will notify daytime nurse of need for family education related to patient safety.
[2019-12-22] MEDS: MELATONIN 3 MG TABLET 6 MG PO (21:12)
[2019-12-22 21:23] VITALS: BP 100/84; PULSE 54; RESP 16; TEMP 36.8; O2SAT 100
[2019-12-23 05:43] VITALS: BP 155/81; PULSE 60; RESP 14; TEMP 36.4; O2SAT 99
[2019-12-23 06:17] LABS: Hematocrit 34.6 % (42.0-52.0); Hemoglobin 11.4 g/dL (14.0-18.0); Mean Corpuscular HGB Conc 32.9 g/dl (32-36); Mean Corpuscular Hemoglobin 29.3 pg (26-34); Mean Corpuscular Volume 88.9 fl (80-100); Platelet Count Result 203 k/mm3 (150-375); Red Blood Count 3.89 M/mm3 (4.6-6.20); Red Cell Distribution Width 12.9 % (11.5-14.5); White Blood Count 4.3 K/mm3 (4.5-10.0)
[2019-12-23 06:41] LABS: Anion Gap 4 mmol/L (8-16); Blood Urea Nitrogen 16 mg/dL (9-20); Calcium 7.8 mg/dL (8.4-10.2); Carbon Dioxide 27 mmol/L (22-30); Chloride 109 mmol/L (98-107); Estimated CRCL calculation 39 ml/min; Estimated Glomerular Filt Rate 58; Glucose 110 mg/dL (75-110); Magnesium 1.9 mg/dL (1.6-2.3); Potassium 3.6 mmol/L (3.4-5.0); Sodium 140 mmol/L (137-145)
[2019-12-23 08:00] VITALS: PULSE 60; RESP 14; O2SAT 99
[2019-12-23] MEDS: DONEPEZIL HCL 10 MG TABLET PO (08:35)
[2019-12-23] MEDS: DOCUSATE SODIUM 100 MG CAPSULE PO (08:35)
[2019-12-23] MEDS: CARBIDOPA/LEVODOPA 25/100 MG TABLET 2 TABLET PO ×3 (08:35→17:37)
[2019-12-23] MEDS: QUEtiapine FUMARATE 25 MG TABLET PO ×2 (08:35→17:37)
[2019-12-23] MEDS: MEMANTINE 10 MG TABLET PO ×2 (08:35→17:37)
[2019-12-23] MEDS: POTASSIUM CHLORIDE 20 MEQ TABLET 40 MEQ PO (10:28)
[2019-12-23 14:00] VITALS: BP 163/68; PULSE 59; RESP 16; TEMP 36.8; O2SAT 100
--- NOTE | 2019-12-23 17:17 | PM.IMPN ---
Progress Note: A&P Assessment and Plan (1) Urinary tract infection: Code(s): N39.0 - Urinary tract infection, site not specified Status: Acute Assessment and Plan: UA and CT findings consistent with hemorrhagic cystitis. Also findings of chronic outlet obstruction from moderately enlarged prostate. He was not retaining urine according to bladder scan. Unfortunately original UCx had an inadequate specimen for further culturing and thus repeat culture was obtained yesterday. Suspect this will be negative given that he has had several days of antibiotics since admission. Will await UCx results Continue Rocpehin Tailor abx to UCx. If negative, will plan on Rocephin through 12/24 given improvement with this since admission. (2) Dehydration: Code(s): E86.0 - Dehydration Status: Acute Assessment and Plan: Appears to have improvement Cautious IV fluid rehydration if resumed (3) Chronic kidney disease, stage 3: Code(s): N18.3 - Chronic kidney disease, stage 3 (moderate) Status: Acute Assessment and Plan: Creatinine is 1.20 today; improvement Will avoid nephrotoxic agents Repeat renal function in a.m. (4) Parkinson's disease: Code(s): G20 - Parkinson's disease Status: Acute Assessment and Plan: Continue carbidopa-levodopa. PT/OT/ST ordered (5) Dementia: Code(s): F03.90 - Unspecified dementia without behavioral disturbance Status: Acute Assessment and Plan: He has had increasing confusion, likely due to dehydration and urinary tract infection. Although patient may be at or near baseline after speaking with , Cecy. ST recommends NPO diet given Mod barium swallow study. Please see previous progress note as patient's wishes to proceed with diet despite ST findings; aware of risks for asp pneumonia Will continue soft diet with mod thickened liquids per family request Continue donepezil, memantine, and quetiapine. (6) Generalized weakness: Code(s): R53.1 - Weakness Status: Acute Assessment and Plan: Secondary to a combination of the above. Therapy recs rehab. Initiate fall precautions Continue PT/OT Likely discharge with HH therapy per family request (7) Hypertension: Qualifiers: Hypertension type: essential hypertension Qualified Code(s): I10 - Essential (primary) hypertension Code(s): I10 - Essential (primary) hypertension Status: Acute Assessment and Plan: BP 160s sys this afternoon Continue to monitor closely as lisinopril is currently on hold given Cr; consider resuming tomorrow or at discharge (8) At risk for aspiration pneumonia: Code(s): Z91.89 - Other specified personal risk factors, not elsewhere classified Status: Acute Assessment and Plan: ST does not recommend resuming diet at this time and recommends ST rehab. understand risk of silent aspiration, aspiration pneumonia and risk of subsequent complications. wishes to advance diet to make him more comfortable. Encouraged f/u with Dr. Bain for further discussions of intermission coordinator care Continue diet to soft, mod thickened liquid diet Monitor closely Subjective Date/time seen: 12/23/19 17:17 Interval history: Patient is a 79-year-old male with Parkinson's, dementia (baseline A&O to self, and occasionally his 's name), hypertension,and history of falls who is here for treatment of UTI, dehydration, and increased weakness. Patient is A&O to self; pleasantly confused. N
[2019-12-23 19:35] VITALS: BP 112/87; PULSE 69; RESP 16; TEMP 36.9; O2SAT 100
[2019-12-23] MEDS: SENNA/DOCUSATE SODIUM TABLET 1 TAB PO (22:04)
[2019-12-23] MEDS: MELATONIN 3 MG TABLET 6 MG PO (22:04)
[2019-12-24 06:05] LABS: Hematocrit 35.4 % (42.0-52.0); Hemoglobin 11.7 g/dL (14.0-18.0); Mean Corpuscular HGB Conc 33.1 g/dl (32-36); Mean Corpuscular Hemoglobin 29.3 pg (26-34); Mean Corpuscular Volume 88.5 fl (80-100); Mean Platelet Volume 9.4 fl (7.4-10.4); Platelet Count Result 232 k/mm3 (150-375); Red Cell Distribution Width 12.5 % (11.5-14.5); White Blood Count 4.5 K/mm3 (4.5-10.0)
[2019-12-24 06:09] VITALS: BP 122/84; PULSE 65; RESP 12; TEMP 36.6; O2SAT 100
[2019-12-24 06:38] LABS: Anion Gap 3 mmol/L (8-16); Blood Urea Nitrogen 14 mg/dL (9-20); Calcium 8.1 mg/dL (8.4-10.2); Carbon Dioxide 29 mmol/L (22-30); Chloride 107 mmol/L (98-107); Estimated CRCL calculation 36 ml/min; Estimated Glomerular Filt Rate 53; Glucose 107 mg/dL (75-110); Potassium 3.8 mmol/L (3.4-5.0); Sodium 139 mmol/L (137-145)
[2019-12-24 08:00] VITALS: PULSE 65; RESP 12; O2SAT 100
[2019-12-24] MEDS: CARBIDOPA/LEVODOPA 25/100 MG TABLET 2 TABLET PO ×3 (08:51→17:42)
[2019-12-24] MEDS: DOCUSATE SODIUM 100 MG CAPSULE PO (08:51)
[2019-12-24] MEDS: DONEPEZIL HCL 10 MG TABLET PO (08:53)
[2019-12-24] MEDS: MEMANTINE 10 MG TABLET PO ×2 (08:53→17:43)
[2019-12-24] MEDS: QUEtiapine FUMARATE 25 MG TABLET PO ×2 (08:58→17:43)
[2019-12-24] MEDS: lisinopriL 10 MG TABLET 5 MG PO (11:22)
[2019-12-24] MEDS: ASPIRIN 81 MG ENTERIC TABLET PO (11:23)
--- NOTE | 2019-12-24 11:55 | PM.IMPN ---
Progress Note: A&P Assessment and Plan (1) Urinary tract infection: Code(s): N39.0 - Urinary tract infection, site not specified Status: Acute Assessment and Plan: UA and CT findings consistent with hemorrhagic cystitis. Also findings of chronic outlet obstruction from moderately enlarged prostate. He was not retaining urine according to bladder scan. Unfortunately original UCx had an inadequate specimen for further culturing and thus repeat culture was obtained 12/21 - this culture is negative likely due to antibiotics given prior to collection. Given improvement on Rocephin, yet slow, will continue this through tomorrow; if improved, will plan to d/c tomorrow home with HH. Consider finishing 7-10 days total with cefdinir Monitor (2) Dehydration: Code(s): E86.0 - Dehydration Status: Acute Assessment and Plan: Appears to have improvement Cautious IV fluid rehydration if resumed (3) Chronic kidney disease, stage 3: Code(s): N18.3 - Chronic kidney disease, stage 3 (moderate) Status: Acute Assessment and Plan: Creatinine is 1.30 today; stable Will avoid nephrotoxic agents Repeat renal function in a.m. (4) Parkinson's disease: Code(s): G20 - Parkinson's disease Status: Acute Assessment and Plan: Continue carbidopa-levodopa. PT/OT/ST ordered (5) Dementia: Code(s): F03.90 - Unspecified dementia without behavioral disturbance Status: Acute Assessment and Plan: He has had increasing confusion, likely due to dehydration and urinary tract infection. Although patient may be at or near baseline after speaking with , Cecy. ST recommends NPO diet given findings on modified barium swallow study. Please see previous progress note as patient's wishes to proceed with diet despite ST findings; aware of risks for asp pneumonia Will continue soft diet with mod thickened liquids per family request Continue donepezil, memantine, and quetiapine. (6) Generalized weakness: Code(s): R53.1 - Weakness Status: Acute Assessment and Plan: Secondary to a combination of the above. Therapy recs rehab. Continue fall precautions Continue PT/OT Likely discharge with HH therapy per family request (7) Hypertension: Qualifiers: Hypertension type: essential hypertension Qualified Code(s): I10 - Essential (primary) hypertension Code(s): I10 - Essential (primary) hypertension Status: Acute Assessment and Plan: BP 120s sys this morning Lisinopril resumed today (8) At risk for aspiration pneumonia: Code(s): Z91.89 - Other specified personal risk factors, not elsewhere classified Status: Acute Assessment and Plan: ST does not recommend resuming diet at this time and recommends ST rehab. understand risk of silent aspiration, aspiration pneumonia and risk of subsequent complications. wishes to advance diet to make him more comfortable. Encouraged f/u with Dr. Bain for further discussions of vermin exterminator care Continue diet to soft, mod thickened liquid diet Monitor closely Subjective Date/time seen: 12/24/19 11:55 Interval history: Patient is a 79-year-old male with Parkinson's, dementia (baseline A&O to self, and occasionally his 's name), hypertension,and history of falls who is here for treatment of UTI, dehydration, and increased weakness. Patient is A&O to self and ; pleasantly confused. Not a reliable historian, but does having said that, when questioned,
[2019-12-24 13:55] VITALS: BP 178/76; PULSE 71; RESP 18; TEMP 37.3; O2SAT 100
[2019-12-24] MEDS: SENNA/DOCUSATE SODIUM TABLET 1 TAB PO (20:18)
[2019-12-24 20:25] VITALS: BP 149/65; PULSE 53; RESP 16; TEMP 36.9; O2SAT 98
[2019-12-25 05:21] VITALS: BP 182/77; PULSE 54; RESP 20; TEMP 36.7; O2SAT 100
[2019-12-25 06:25] LABS: Hematocrit 37.6 % (42.0-52.0); Hemoglobin 12.4 g/dL (14.0-18.0); Mean Corpuscular Hemoglobin 29.1 pg (26-34); Mean Corpuscular Volume 88.3 fl (80-100); Mean Platelet Volume 9.2 fl (7.4-10.4); Platelet Count Result 231 k/mm3 (150-375); Red Blood Count 4.26 M/mm3 (4.6-6.20); Red Cell Distribution Width 12.6 % (11.5-14.5)
[2019-12-25 06:35] LABS: Anion Gap 3 mmol/L (8-16); Blood Urea Nitrogen 15 mg/dL (9-20); Calcium 8.1 mg/dL (8.4-10.2); Carbon Dioxide 31 mmol/L (22-30); Chloride 106 mmol/L (98-107); Estimated CRCL calculation 39 ml/min; Estimated Glomerular Filt Rate 58; Glucose 105 mg/dL (75-110); Potassium 4.1 mmol/L (3.4-5.0); Sodium 140 mmol/L (137-145)
[2019-12-25] MEDS: lisinopriL 10 MG TABLET 5 MG PO (08:50)
[2019-12-25] MEDS: DOCUSATE SODIUM 100 MG CAPSULE PO (08:51)
[2019-12-25] MEDS: MEMANTINE 10 MG TABLET PO (08:51)
[2019-12-25 08:52] VITALS: RESP 20; O2SAT 100
[2019-12-25] MEDS: QUEtiapine FUMARATE 25 MG TABLET PO (08:52)
[2019-12-25] MEDS: ASPIRIN 81 MG ENTERIC TABLET PO (08:52)
[2019-12-25] MEDS: CARBIDOPA/LEVODOPA 25/100 MG TABLET 2 TABLET PO ×2 (08:52→12:46)
[2019-12-25] MEDS: DONEPEZIL HCL 10 MG TABLET PO (08:52)
--- NOTE | 2019-12-25 13:16 | PM.DS ---
DS: Admitting Diagnosis Admitting Diagnosis Admitting Diagnosis: Weakness and confusion. DS: Discharge Diagnosis Discharge Diagnosis (1) Urinary tract infection: Code(s): N39.0 - Urinary tract infection, site not specified Status: Acute Assessment and Plan: UA and CT findings consistent with hemorrhagic cystitis. Also findings of chronic outlet obstruction from moderately enlarged prostate. He was not retaining urine according to bladder scan. Unfortunately original UCx had an inadequate specimen for further culturing and thus repeat culture was obtained 12/21 - this culture is negative likely due to antibiotics given prior to collection. Will discharge home with HH today Discharge with cefdinir through 12/25 F/u with PCP (2) Dehydration: Code(s): E86.0 - Dehydration Status: Acute Assessment and Plan: Appears to have improvement Cautious IV fluid rehydration if resumed (3) Chronic kidney disease, stage 3: Code(s): N18.3 - Chronic kidney disease, stage 3 (moderate) Status: Acute Assessment and Plan: Creatinine is 1.20 today; stable f/u with pcp (4) Parkinson's disease: Code(s): G20 - Parkinson's disease Status: Acute Assessment and Plan: Continue carbidopa-levodopa. PT/OT/ST ordered; continue these with HH (5) Dementia: Code(s): F03.90 - Unspecified dementia without behavioral disturbance Status: Acute Assessment and Plan: He has had increasing confusion, likely due to dehydration and urinary tract infection. Pt at or near baseline after speaking with , Cecy. ST recommends NPO diet given findings on modified barium swallow study. Please see previous progress note as patient's wishes to proceed with diet despite ST findings; aware of risks for asp pneumonia Will continue soft diet with mod thickened liquids per family request Continue donepezil, memantine, and quetiapine. (6) Generalized weakness: Code(s): R53.1 - Weakness Status: Acute Assessment and Plan: Secondary to a combination of the above. Therapy recs rehab. Continue PT/OT at discharge with HH (7) Hypertension: Qualifiers: Hypertension type: essential hypertension Qualified Code(s): I10 - Essential (primary) hypertension Code(s): I10 - Essential (primary) hypertension Status: Acute Assessment and Plan: BP 180s sys this morning prior to meds given Lisinopril continues (8) At risk for aspiration pneumonia: Code(s): Z91.89 - Other specified personal risk factors, not elsewhere classified Status: Acute Assessment and Plan: ST does not recommend resuming diet at this time and recommends ST rehab. understand risk of silent aspiration, aspiration pneumonia and risk of subsequent complications. wishes to advance diet to make him more comfortable. Encouraged f/u with Dr. Bain for further discussions of skilled nursing care Continue diet to soft, mod thickened liquid diet Monitor closely DS: Summary Hospital Course Reason for hospitalization: AMS, UTI, risk for aspiration pneumonia Hospital Course: Patient is a 79 yo M with history of Parkinson's, dementia, hypertension,and history of falls who presented to the emergency department on 12/19 via private vehicle from home for evaluation of weakness and confusion. While in the ED UA was suspicious for UTI and creatinine worse than his baseline. He was placed on IV fluids and IV Rocephin to treat UTI. Patient admitted under this setti
--- NOTE | 2019-12-25 14:50 | PCSTNOTE ---
Patient discharging at time of ST arrival.
--- NOTE | 2020-01-08 09:01 | STIPEVAL ---
Thank you for referring Woody Wright to [facility].? The patient is scheduled to be seen for therapy? ____x/week for ___ weeks. Please review, sign, date and return this plan of care MOHINI. I agree with and certify that the following plan of care is medically necessary. Referring Physician Date Admitting Provider: Brooke Haq MD Attending Provider: Jadon James MD Referring Provider: TAINA Inpatient Evaluation Start: 12/21/19 17:59 Freq: Status: Active Protocol: Document 12/22/19 10:30 BECHERERT (Rec: 12/22/19 12:47 BECHERERT [email or web address]) Therapy Assessment Status Assessment Status Assessment Status Evaluation Pain Assessment Timing of Pain Assessment Timing of Pain Assessment Assessment Self Report Self Report Pain Level 0 Pain Score Pain Score 0: Self Report Bedside Swallow Evaluation Consistency Solid Consistency Uncontrolled 2 Other Swallow Amount fruit cocktail Method of Presentation Spoon Occurrence of Coughing None Vocal Quality After Swallowing Clear Swallow Palpation Results Good Swallow Initiation Thin Uncontrolled 1 Other Swallow Amount cup, straw, and spoon trials Occurrence of Coughing None Vocal Quality After Swallowing Clear Swallow Palpation Results Good Swallow Initiation Solid Consistency Other Swallow Amount cracker Method of Presentation Finger/Hand Behaviors Observed Coughing/Choking Occurrence of Coughing After Vocal Quality After Swallowing Clear Swallow Palpation Results Good Swallow Initiation Pureed Consistency Method of Presentation Spoon Occurrence of Coughing None Vocal Quality After Swallowing Clear Swallow Palpation Results Good Swallow Initiation Tolerance Tolerance For Swallow Slight Distress Alertness confusion Cooperativeness Calm,Cooperative Awareness of Swallowing Problem Unaware Awareness of Secretions Aware Limiting Factors of Swallow Function Confusion Recommendations Feeding Type Recommended Non-Oral ST Clinical Summary Clinical Summary ST Clinical Summary The pt was positioned upright and presented with at least 2 trials each of thin liquid via spoon, thin liquid via cup and thin liquid via straw, applesauce, mixed consistency (fruit cocktail), and cracker. Oral stages were within functional limits; Pt exhibited overt s/s of aspiration (cough) af
== END 2019-12-25 15:17 | disposition home health service (06) | DRG 690 ==
LOC: ANHED 09:41 → ANH3MED 12:17
PROVIDERS: Physician Assistant; Admitting Provider Family Medicine; Emergency Provider General Practice; PCP Family Medicine; Visit Provider Internal Medicine
DX: N39.0 Urinary tract infection, site not specified (principal); G93.40 Encephalopathy, unspecified; N17.9 Acute kidney failure, unspecified; N18.3 Chronic kidney disease, stage 3 (moderate); I12.9 Hypertensive chronic kidney disease with stage 1 through stage 4 chronic kidney disease, or unspecified chronic kidney disease; G20 Parkinson's disease; F02.80 Dementia in other diseases classified elsewhere, unspecified severity, without behavioral disturbance, psychotic disturbance, mood disturbance, and anxiety; E86.0 Dehydration
CPT/HCPCS: 36415; 70450; 71045; 74176; 80048; 80053; 81001; 83735; 84439; 84443; 84480; 85025; 85027; 85610; 85730; 87086; 92526; 92610; 92611; 93005; 96361; 96365; 96367; 97110; 97116; 97161; 97166; 97530; 97535; 99291; A9270; G0378; J0131; J0696; J7030

== ENCOUNTER 2020-06-03 09:30 | Inpatient (IN) | payer MEDICARE, SELFPAY ==
[2020-06-03] VITALS (24 sets, daily range): BP systolic 127–191; BP diastolic 62–162; PULSE 66–82; RESP 13–24; TEMP 36.6–37.6; O2SAT 73–100
--- NOTE | ~2020-06-03 | XR_ITS ---
EXAMINATION: XR chest 1V portable INDICATION: Cough TECHNIQUE: Portable AP chest at 1014 hours COMPARISON: 12/20/2019 FINDINGS: There are airspace opacities of the lung bases, left greater than right. There is no pleura l effusion or pneumothorax. The cardiomediastinal silhouette is normal. IMPRESSION: 1. Bibasilar airspace opacities, left greater than right, likely pneumonia. Reviewed, dictated and finalized at location A. KEN HANDLER
--- NOTE | ~2020-06-03 | CT_ITS ---
EXAMINATION: CT brain wo con INDICATION: Lethargy, altered mental status COMPARISON: 12/20/2019 TECHNIQUE: Standard unenhanced head CT. The dose-length product (DLP) was 1362.00 mGy-cm. The mA was adjusted according to patient size. Iterative reconstruction technique was employed. FINDINGS: There is no acute intraparenchymal hemorrhage. No evidence of mass lesion. No evidence of a cute infarction. There is mild periventricular and subcortical hypodensity probably related to small vessel ischemic disease. There is moderate prominence of the sulci and ventricles related to cerebral atrophy. Intracranial calcified cerebral atherosclerosis is noted. There are no extra-axial collecti ons. There is no mass effect or midline shift. Changes in the globes are likely from ocular lens surg perry. There is a polyp or mucous retention cyst of the left maxillary sinus. Mucosal thickening is no huan in the ethmoidal air cells. IMPRESSION: 1. No acute intracranial abnormality. 2. Age related findings. Reviewed, dictated and finalized at location A. [place] [employer]
--- NOTE | 2020-06-03 09:33 | ECG_ITS ---
Measurements Intervals [place] Rate: 66 P: 54 NC: 148 QRS: -25 QRSD: 98 T: 56 QT: 403 QTc: 425 Interpretive Statements SINUS RHYTHM BASELINE ARTIFACT- I, II, III, AVR, AVL, AVF, V1-V4 NORMAL ECG Electronically Signed On 06-03-2020 10:11:52 NUT ORCHARDIST by Raj Pablo D.O.
--- NOTE | 2020-06-03 10:01 | ED.WEAKNESS ---
HPI - Weakness General Chief complaint: Weakness Stated complaint: weakness and dehydration Time Seen by Provider: 06/03/20 09:36 Source: RN notes reviewed History of Present Illness HPI Narrative: Patient presents to emergency department from home with for weakness. states patient is normally able to get up and walk around without any difficulty and will only use walker sometimes at night. She states since yesterday the patient's been having a hard time getting up and is taken to family members to get the patient up patient has been more lethargic per the and not eating and drinking as well patient currently denies any complaints no known fevers. Patient has any chest pain shortness of breath abdominal pain nausea vomiting. Per the he has had a mild cough at night only Related Data Home Medications Medication Instructions Recorded Confirmed melatonin 3 mg capsule 6 mg PO DAILY PRN cap 03/09/19 01/02/20 memantine 10 mg tablet 10 mg PO BID 03/09/19 01/02/20 carbidopa 25 mg-levodopa 100 mg 2 tablet PO TID tablet 03/13/19 01/02/20 tablet quetiapine 25 mg tablet 25 mg PO BID tablet 06/12/19 01/02/20 docusate sodium [Colace] 100 mg PO DAILY 12/20/19 01/02/20 sennosides-docusate sodium 1 tab-cap PO HS 12/20/19 01/02/20 [Senna-S] aspirin 325 mg tablet 325 mg PO DAILY 01/02/20 01/02/20 donepezil 10 mg tablet 10 mg PO BID tablet 01/02/20 01/02/20 Allergies Allergy/AdvReac Type Severity Reaction Status Date / Time No Known Allergies Allergy Verified 01/02/20 15:22 Review of Systems Review of Systems: Narrative: Gen.: Denies fevers or chills Eyes: Denies eye pain or visual change ENT: Denies congestion Respiratory: Denies shortness of breath reports cough CV: Denies chest pain or palpitations GI: Denies abdominal pain nausea, emesis or diarrhea Musculoskeletal: Denies back pain or muscle pain Neuro: Denies numbness, tingling, reports weakness Skin: Denies rash Except as documented, all other systems reviewed and negative [facility] Past Medical History Medical History (Updated 06/03/20 @ 12:01 by Woody Harrison DO) Chronic kidney disease Chronic kidney disease, stage 3 Baseline creatinine is 1.30. 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 Surgical History Surgical History History of bilateral cataract extraction History of prostate surgery Previous back surgery Family History Family History Father Hypertension Grandparent Family history of Alzheimer's disease Mother Family history of Alzheimer's disease Social History Social History Social History: Surrogate decision maker: Cecy Wright, . Code status: Full code. Smoking status: Never smoker Second hand tobacco smoke exposure: No Smoking end date: 04/26/78 Alcohol intake: never Substance use: never Substance use type: does not use Additional living arrangements comments: Resides with his spouse in [place]. Gender identity (if verbalized by the patient): Male Spiritual care concerns: No Agree to blood products: Yes Exam Narrative: Exam Narrative: APPEARANCE: No acute distress, nontoxic, resting in bed EYES: PERRL HEENT: Normocephalic, atraumatic, OMM RESPIRATORY: No respiratory distress Clear to auscultation bilaterally with no rhonchi wheezing or rales. CARDIOVASCULAR: Regular rate and rhythm without murmurs rubs or gallops. ABDOMINAL: Soft, nontender, nondistended, no rebound or guarding MUSCULOSKELETAl: Moves all extremities. No clubbing, cyanosis or edema. NEURO: Awake and alert x 2Following co
[2020-06-03 10:18] LABS: Basophils Percent Auto 0.4 % (0.2-1.2); Hematocrit 39.5 % (42.0-52.0); Hemoglobin 12.6 g/dL (14.0-18.0); Immature Granulocyte Absolute 0.02 K/mm3 (0.00-0.031); Immature Granulocyte Percent A 0.4 % (0-0.5); Lymphocytes Absolute Auto 0.51 K/mm3 (0.9-3.2); Mean Corpuscular HGB Conc 31.9 g/dl (32-36); Mean Corpuscular Hemoglobin 29.2 pg (26-34); Mean Corpuscular Volume 91.4 fl (80-100); Monocytes Absolute Auto 0.5 K/mm3 (0.1-0.6); Neutrophils Absolute Auto 4.6 K/mm3 (1.3-6.7); Neutrophils Percent Auto 81.2 % (45.5-73.1); Platelet Count Result 189 k/mm3 (150-375); Red Blood Count 4.32 M/mm3 (4.6-6.20); Red Cell Distribution Width 13.2 % (11.5-14.5); White Blood Count 5.7 K/mm3 (4.5-10.0)
[2020-06-03] MEDS: SODIUM CHLORIDE 0.9% IV 1,000 ML 999 ML IV CONT (10:20)
[2020-06-03 10:34] LABS: Alanine Aminotransferase 12 U/L (4-50); Albumin Level 3.7 g/dL (3.5-5.1); Alkaline Phosphatase 87 U/L (38-126); Anion Gap 6 mmol/L (8-16); Aspartate Amino Transferase 25 U/L (17-59); Bilirubin,Total 0.6 mg/dL (0.2-1.3); Blood Urea Nitrogen 32 mg/dL (9-20); Calcium 8.3 mg/dL (8.4-10.2); Carbon Dioxide 28 mmol/L (22-30); Chloride 108 mmol/L (98-107); Estimated CRCL calculation 26 ml/min; Estimated Glomerular Filt Rate 36; Glucose 112 mg/dL (75-110); Potassium 4.5 mmol/L (3.4-5.0); Sodium 142 mmol/L (137-145)
[2020-06-03 11:17] LABS: Add Urine Microscopic? YES; Appearance Urine Clear (Clear); Bilirubin Urine Negative (Negative); Blood Urine 1+ (Negative); Color Urine Yellow (Yellow); Glucose Urine UA 1+ mg/dL (Negative); Ketones Urine Trace mg/dL (Negative); Leukocyte Esterase Ur Negative LEU/UL (Negative); Mucus Urine Rare /lpf; Nitrate Urine Negative (Negative); Protein Urine 2+ mg/dL (Negative); RBC Urine 0-2 /hpf (0-2); Specific Grav Ur 1.021 (1.001-1.035); Squamous Epithelial Cell Urine Rare /hpf (Few); Urobilinogen Urine Negative mg/dL (<2.0); WBC Urine 0-3 /hpf
--- NOTE | 2020-06-03 14:09 | ADMGEN ---
This patient, Woody Wright, was admitted to 3 [facility] Room 329-01. Patient/family oriented to hospital policies and general routines including ID bracelet, bed and alarms, visiting hours, pain management, procedures, bathroom and other care routines, personal items, smoking policy, room service/diet, and visiting hours. Information on how to activate the Rapid Response Team has been discussed. Patient/Family are encouraged to report perceived risks to care and to ask questions if they do not understand what they are told or what they should do.
--- NOTE | 2020-06-03 14:30 | PM.IMHP ---
H&P: HPI History of Present Illness Date/Time: 06/03/20 14:30 Chief Complaint: Weakness. Narrative: This is an 79-year-old male with Parkinson's, dementia, hypertension, chronic kidney disease, chronic anemia, and history of falls who presented to the emergency department earlier today via private vehicle from home for evaluation of weakness. Given his dementia he is unable to provide an accurate medical history and as such a majority of this history is obtained via a review of his electronic medical records and discussions with family members. At the time my evaluation he is confused and is unaware that he is in the hospital. At baseline he is usually able to get up and ambulate without difficulty however will occasionally use a walker. For the past 2 days he has been having difficulties getting himself up and has been lethargic. He has not been eating or drinking very well and has had a cough and congestion in the same time frame. Currently he has no complaints, and specifically denies fever, chills, sweats, chest pain, shortness of breath, nausea, vomiting, and diarrhea. Review of Systems Review of Systems: Narrative: Unable to be obtained accurately given his dementia as detailed above. [facility] Past Medical History Medical History Chronic anemia Chronic kidney disease, stage 3 Baseline creatinine is 1.30. Dementia Hypertension Parkinson's disease Recurrent falls Including a fall down the stairs in August 2017 in which he sustained left 5th through 10th rib fractures, pneumothorax, and left patellar fracture. Surgical History Surgical History History of bilateral cataract extraction History of prostate surgery Previous back surgery Family History Family History Father Hypertension Grandparent Family history of Alzheimer's disease Mother Family history of Alzheimer's disease Social History Social History Social History: Surrogate decision maker: Cecy Wright, . Code status: Full code. Smoking status: Never smoker Second hand tobacco smoke exposure: No Smoking end date: 04/26/78 Alcohol intake: never Substance use: never Substance use type: does not use Additional living arrangements comments: Resides with his spouse in [place]. Gender identity (if verbalized by the patient): Male Spiritual care concerns: No Agree to blood products: Yes Meds Home Medications and Allergies Home Medications Medication Instructions Recorded Confirmed Type melatonin 3 mg capsule 6 mg PO DAILY PRN cap 03/09/19 06/03/20 History memantine 10 mg tablet 10 mg PO BID 03/09/19 06/03/20 History carbidopa 25 mg-levodopa 100 mg 2 tablet PO TID tablet 03/13/19 06/03/20 History tablet quetiapine 25 mg tablet 25 mg PO BID tablet 06/12/19 06/03/20 History lisinopril 10 mg tablet 5 mg PO DAILY #90 tablet 09/19/19 06/03/20 Rx docusate sodium [Colace] 100 mg PO DAILY 12/20/19 06/03/20 History sennosides-docusate sodium 1 tab-cap PO HS PRN 12/20/19 06/03/20 History [Senna-S] aspirin 325 mg tablet 325 mg PO DAILY 01/02/20 06/03/20 History donepezil 10 mg tablet 10 mg PO BID tablet 01/02/20 06/03/20 History Allergies Allergy/AdvReac Type Severity Reaction Status Date / Time No Known Allergies Allergy Verified 01/02/20 15:22 Vital Signs Vital Signs - 24 hr 06/03/20 09:44 06/03/20 09:45 06/03/20 09:46 Temperature 98 F Pulse Rate 70 76 66 Respiratory Rate 16 24 H Blood Pressure 191/91 H 191/91 H Pulse Oximetry 73 L 100 100 06/03/20 10:00 06/03/20 10:01 06/03/20 10:15 Temperature Pulse Rate 69 74 70 Respiratory Rate 17 14 18 Blood Pressure 180/93 H Pulse Oximetry 100 100 100 06/03/20 10:16 06/03/20 10:37 06/03/20 10:38 Temperature
[2020-06-03] MEDS: SODIUM CHLORIDE 0.9% IV 1,000 ML 80 ML IV CONT (15:19)
[2020-06-03] MEDS: lisinopriL 5 MG TABLET PO (16:10)
[2020-06-03] MEDS: CARBIDOPA/LEVODOPA 25/100 MG TABLET 2 TABLET PO (16:10)
[2020-06-03] MEDS: QUEtiapine FUMARATE 25 MG TABLET PO (16:13)
[2020-06-03] MEDS: QUEtiapine FUMARATE 12.5 MG TABLET PO (21:01)
[2020-06-03] MEDS: MEMANTINE 10 MG TABLET PO (21:01)
[2020-06-03] MEDS: DONEPEZIL HCL 10 MG TABLET PO (21:01)
[2020-06-03 23:24] LABS: SARS-CoV-2 RNA PCR Positive
[2020-06-04] VITALS (11 sets, daily range): BP systolic 118–179; BP diastolic 58–86; PULSE 66–86; RESP 16–20; TEMP 36.9–38.2; O2SAT 94–100
[2020-06-04] MEDS: SODIUM CHLORIDE 0.9% IV 1,000 ML 80 ML IV CONT (05:42)
[2020-06-04 07:28] LABS: Anion Gap 8 mmol/L (8-16); Blood Urea Nitrogen 24 mg/dL (9-20); CRP 7.3 mg/dL (<1.0); Carbon Dioxide 24 mmol/L (22-30); Chloride 109 mmol/L (98-107); Estimated CRCL calculation 35 ml/min; Estimated Glomerular Filt Rate 53; Glucose 98 mg/dL (75-110); Lactate Dehydrogenase 552 U/L (313-618); Magnesium 1.8 mg/dL (1.6-2.3); Sodium 141 mmol/L (137-145)
[2020-06-04 07:34] LABS: Basophils Percent Auto 0.3 % (0.2-1.2); Eosinophils Percent Auto 0.3 % (0-4.4); Hematocrit 38.6 % (42.0-52.0); Hemoglobin 12.6 g/dL (14.0-18.0); Immature Granulocyte Absolute 0.03 K/mm3 (0.00-0.031); Immature Granulocyte Percent A 0.4 % (0-0.5); Lymphocytes Absolute Auto 0.76 K/mm3 (0.9-3.2); Lymphocytes Percent Auto 11.1 % (18.3-44.2); Mean Corpuscular HGB Conc 32.6 g/dl (32-36); Mean Corpuscular Hemoglobin 29.9 pg (26-34); Mean Corpuscular Volume 91.7 fl (80-100); Mean Platelet Volume 10.2 fl (7.4-10.4); Monocytes Absolute Auto 0.5 K/mm3 (0.1-0.6); Monocytes Percent Auto 7.9 % (2.6-8.5); Neutrophils Absolute Auto 5.5 K/mm3 (1.3-6.7); Platelet Count Result 186 k/mm3 (150-375); Red Blood Count 4.21 M/mm3 (4.6-6.20); Red Cell Distribution Width 13.2 % (11.5-14.5); White Blood Count 6.8 K/mm3 (4.5-10.0)
[2020-06-04 08:02] LABS: Thyroid Stimulating Hormone Reflex 0.767 uIU/mL (0.465-4.68)
[2020-06-04] MEDS: lisinopriL 5 MG TABLET PO (08:47)
[2020-06-04] MEDS: ASPIRIN 81 MG CHEWABLE TABLET 162 MG PO (08:47)
[2020-06-04] MEDS: hydrALAZINE HCL 20 MG/ML VIAL 5 MG IV PUSH (08:47)
[2020-06-04] MEDS: MEMANTINE 10 MG TABLET PO ×2 (08:47→20:07)
[2020-06-04] MEDS: DONEPEZIL HCL 10 MG TABLET PO ×2 (08:48→20:07)
[2020-06-04] MEDS: CARBIDOPA/LEVODOPA 25/100 MG TABLET 2 TABLET PO ×3 (08:48→17:42)
[2020-06-04] MEDS: DOCUSATE SODIUM 100 MG CAPSULE PO (08:48)
--- NOTE | 2020-06-04 12:45 | PCSTNOTE ---
This Modified Barium Swallow will not be completed today due to Covid + status. It can be rescheduled when the patient is able to complete the test.
--- NOTE | 2020-06-04 17:36 | PM.IMPN ---
Progress Note: A&P Assessment and Plan (1) Pneumonia: Code(s): J18.9 - Pneumonia, unspecified organism Status: Acute Assessment and Plan: Pt is on iv rocephin and doxycycline, CXR shows left sided pneumonia (2) Generalized weakness: Code(s): R53.1 - Weakness Status: Acute (3) Acute on chronic kidney failure: Code(s): N17.9 - Acute kidney failure, unspecified; N18.9 - Chronic kidney disease, unspecified Status: Chronic (4) Dementia: Qualifiers: Dementia behavioral disturbance: without behavioral disturbance Dementia type: Parkinson's disease Qualified Code(s): G20 - Parkinson's disease; F02.80 - Dementia in other diseases classified elsewhere without behavioral disturbance Code(s): F03.90 - Unspecified dementia without behavioral disturbance Status: Chronic Assessment and Plan: Pt is on Quetiapine (5) Hypertension: Qualifiers: Hypertension type: essential hypertension Qualified Code(s): I10 - Essential (primary) hypertension Code(s): I10 - Essential (primary) hypertension Status: Chronic (6) Chronic anemia: Code(s): D64.9 - Anemia, unspecified Status: Inactive (7) Parkinson's disease: Code(s): G20 - Parkinson's disease Status: Acute Assessment and Plan: Carbidopa and levodopa (8) COVID-19: Code(s): U07.1 - COVID-19 Status: Acute Assessment and Plan: Pt found to be Covid positive - Tylenol for fever, albuterol for cough and sob, start course of steroids, oxygen prn Subjective Date/time seen: 06/04/20 17:36 Interval history: 79-year-old male with Parkinson's, dementia, hypertension, chronic kidney disease, chronic anemia, and history of falls who presented to the emergency department earlier today via private vehicle from home for evaluation of weakness. Pt is elderly not so communicative in room. Pt having high fevers in the room. Review of Systems Review of Systems: ROS unobtainable: Yes unobtainable due to medical condition Exam Narrative: Exam Narrative: General: Frail elderly male, wet cough, lying in bed, bad tremor Neck: Supple. Respiratory: Respirations are clear Cardiovascular: Regular rate and rhythm with S1-S2. Gastrointestinal: Abdomen is soft, nontender, and nondistended with positive bowel sounds. Skin: dry skin pal and thin Extremities: No cyanosis, clubbing, or edema. Neurological: severe tremor Psychiatric: Some cooperation but pleasantly confused Objective Data Vital Signs Vital Signs: Vital Signs - 24 hr 06/03/20 17:48 06/03/20 20:00 06/03/20 22:00 Temperature 37.6 C H Pulse Rate 73 Respiratory Rate 20 Blood Pressure 127/62 147/87 H Pulse Oximetry 97 95 06/04/20 00:00 06/04/20 04:00 06/04/20 08:00 Temperature 36.9 C 37.2 C 38.1 C H Pulse Rate 66 75 72 Respiratory Rate 20 20 16 Blood Pressure 128/75 165/80 H 179/80 H Pulse Oximetry 97 94 98 06/04/20 09:19 06/04/20 09:36 06/04/20 12:00 Temperature 37.8 C H Pulse Rate 76 Respiratory Rate 18 Blood Pressure 137/58 L 130/68 Pulse Oximetry 95 98 06/04/20 16:00 Temperature 38.2 C H Pulse Rate 86 Respiratory Rate 18 Blood Pressure 155/86 H Pulse Oximetry 100 Intake/Output Intake/Output: Intake & Output 06/01/20 06/02/20 06/03/20 06/04/20 23:59 23:59 23:59 23:59 Intake Total 1700 2320 Output Total 100 Balance 1700 2220 Meds/Results Medications: Active Medications Generic Name Dose Route Start Last Admin Trade Name Freq PRN Reason Stop Dose Admin Acetaminophen 650 mg 06/04/20 16:33 Acetaminophen 325 Mg Tablet PO QID PRN Mild Pain (1-3) or Fever Albuterol 2 puff 06/03/20 14:25 Albuterol Sulfate (*Sp) Aerosol 1 Puff INHALATION QIDRT PRN Shortness Of Breath Aspirin 162 mg 06/04/20 08:00 06/04/20 08:47 Aspirin 81 Mg Chewable Tablet PO 162 mg DAILY@0800 SHANTAL
[2020-06-04] MEDS: ENOXAPARIN 40 MG/0.4 ML SYRINGE SUB-Q (17:41)
[2020-06-04] MEDS: ACETAMINOPHEN 325 MG TABLET 650 MG PO (17:43)
[2020-06-04] MEDS: QUEtiapine FUMARATE 25 MG TABLET PO (17:43)
[2020-06-04] MEDS: QUEtiapine FUMARATE 12.5 MG TABLET PO (20:07)
[2020-06-05] VITALS (7 sets, daily range): BP systolic 143–177; BP diastolic 75–94; PULSE 58–87; RESP 18–20; TEMP 35.9–37.5; O2SAT 95–100
[2020-06-05] MEDS: ASPIRIN 81 MG CHEWABLE TABLET 162 MG PO (08:56)
[2020-06-05] MEDS: DEXAMETHASONE 2 MG TABLET 6 MG PO (08:56)
[2020-06-05] MEDS: CARBIDOPA/LEVODOPA 25/100 MG TABLET 2 TABLET PO ×3 (08:57→17:00)
[2020-06-05] MEDS: DONEPEZIL HCL 10 MG TABLET PO ×2 (08:57→20:29)
[2020-06-05] MEDS: DOCUSATE SODIUM 100 MG CAPSULE PO (08:57)
[2020-06-05] MEDS: lisinopriL 5 MG TABLET PO (08:58)
[2020-06-05] MEDS: MEMANTINE 10 MG TABLET PO ×2 (08:58→20:29)
--- NOTE | 2020-06-05 15:24 | PCSTNOTE ---
Patient's MBS remains on hold due to COVID positive status.
--- NOTE | 2020-06-05 18:30 | PM.IMPN ---
Progress Note: A&P Assessment and Plan (1) Pneumonia: Code(s): J18.9 - Pneumonia, unspecified organism Status: Acute Assessment and Plan: Pt is on iv rocephin and doxycycline, CXR shows left sided pneumonia (2) Generalized weakness: Code(s): R53.1 - Weakness Status: Acute Assessment and Plan: encourage soft food orally no need for feeding tube, if pt shows signs of choking will order swallow test (3) Acute on chronic kidney failure: Code(s): N17.9 - Acute kidney failure, unspecified; N18.9 - Chronic kidney disease, unspecified Status: Chronic (4) Dementia: Qualifiers: Dementia type: Parkinson's disease Dementia behavioral disturbance: without behavioral disturbance Qualified Code(s): G20 - Parkinson's disease; F02.80 - Dementia in other diseases classified elsewhere without behavioral disturbance Code(s): F03.90 - Unspecified dementia without behavioral disturbance Status: Chronic Assessment and Plan: Pt is on Quetiapine (5) Hypertension: Qualifiers: Hypertension type: essential hypertension Qualified Code(s): I10 - Essential (primary) hypertension Code(s): I10 - Essential (primary) hypertension Status: Chronic (6) Chronic anemia: Code(s): D64.9 - Anemia, unspecified Status: Inactive (7) Parkinson's disease: Code(s): G20 - Parkinson's disease Status: Acute Assessment and Plan: Carbidopa and levodopa (8) COVID-19: Code(s): U07.1 - COVID-19 Status: Acute Assessment and Plan: Pt found to be Covid positive - Tylenol for fever, albuterol for cough and sob, start course of steroids, oxygen prn Subjective Date/time seen: 06/05/20 18:30 Interval history: 79-year-old male with Parkinson's, dementia, hypertension, chronic kidney disease, chronic anemia, and history of falls who presented to the emergency department earlier today via private vehicle from home for evaluation of weakness. pt appears better more active and alert today , tried to call his on the phone went to answering message Review of Systems Review of Systems: All systems reviewed & are unremarkable except as noted in HPI and below Exam Narrative: Exam Narrative: General: Frail elderly male, lying in bed, more alert and talkative Neck: Supple. Respiratory: Respirations are clear Cardiovascular: Regular rate and rhythm with S1-S2. Gastrointestinal: Abdomen is soft, nontender, and nondistended with positive bowel sounds. Skin: dry skin pal and thin Extremities: No cyanosis, clubbing, or edema. Neurological: severe tremor Psychiatric: Some cooperation but pleasantly confused Objective Data Vital Signs Vital Signs: Vital Signs - 24 hr 06/04/20 18:37 06/04/20 18:43 06/04/20 20:00 Temperature 37.2 C 37.2 C 37.6 C H Pulse Rate 70 Respiratory Rate 20 Blood Pressure 118/67 Pulse Oximetry 94 06/05/20 00:00 06/05/20 04:00 06/05/20 08:00 Temperature 37.3 C 37.2 C 37.5 C Pulse Rate 78 75 87 Respiratory Rate 20 20 18 Blood Pressure 162/84 H 148/79 H 162/75 H Pulse Oximetry 99 96 96 06/05/20 12:00 06/05/20 16:00 Temperature 36.7 C 36.7 C Pulse Rate 70 75 Respiratory Rate 18 18 Blood Pressure 157/81 H 177/87 H Pulse Oximetry 95 100 Intake/Output Intake/Output: Intake & Output 06/02/20 06/03/20 06/04/20 06/05/20 23:59 23:59 23:59 23:59 Intake Total 1700 2670 720 Output Total 100 Balance 1700 2570 720 Meds/Results Medications: Active Medications Generic Name Dose Route Start Last Admin Trade Name Freq PRN Reason Stop Dose Admin Acetaminophen 650 mg 06/04/20 16:33 06/04/20 17:43 Acetaminophen 325 Mg Tablet PO 650 mg QID PRN Administration Mild Pain (1-3) or Fever Albuterol 2 puff 06/04/20 17:54 Albuterol Sulfate (*Sp) Aerosol 1 Puff INHALATION Q6HRT PRN Shortness Of Breath Aspirin 162 mg
[2020-06-05] MEDS: QUEtiapine FUMARATE 25 MG TABLET PO (19:35)
[2020-06-05] MEDS: ENOXAPARIN 40 MG/0.4 ML SYRINGE SUB-Q (19:36)
--- NOTE | 2020-06-05 20:15 | PC.NURSE ---
Patient's Cecy called at this time. She states that she didn't receive an expected phone call in the afternoon. She said she would like to receive more regular updates and have an opportunity to 'FaceTime' her . Two women claiming to be her daughters were also discussing their concerns in the background. The latest MD report was discussed, recent vitals, and patient's current behavior and mood.
[2020-06-05] MEDS: QUEtiapine FUMARATE 12.5 MG TABLET PO (20:30)
[2020-06-06] VITALS (7 sets, daily range): BP systolic 112–154; BP diastolic 57–75; PULSE 58–86; RESP 18–20; TEMP 35.9–37.4; O2SAT 96–98
[2020-06-06] MEDS: DEXAMETHASONE 2 MG TABLET 6 MG PO (09:26)
[2020-06-06] MEDS: DOCUSATE SODIUM 100 MG CAPSULE PO (09:27)
[2020-06-06] MEDS: ASPIRIN 81 MG CHEWABLE TABLET 162 MG PO (09:27)
[2020-06-06] MEDS: DONEPEZIL HCL 10 MG TABLET PO ×2 (09:28→20:48)
[2020-06-06] MEDS: CARBIDOPA/LEVODOPA 25/100 MG TABLET 2 TABLET PO ×3 (09:28→17:05)
[2020-06-06] MEDS: MEMANTINE 10 MG TABLET PO ×2 (09:28→20:48)
[2020-06-06] MEDS: lisinopriL 5 MG TABLET PO (09:28)
--- NOTE | 2020-06-06 15:20 | PM.IMPN ---
Progress Note: A&P Assessment and Plan (1) Pneumonia: Code(s): J18.9 - Pneumonia, unspecified organism Status: Acute Assessment and Plan: Pt is on iv rocephin and doxycycline, CXR shows left sided pneumonia (2) Generalized weakness: Code(s): R53.1 - Weakness Status: Acute Assessment and Plan: encourage soft food orally no need for feeding tube, if pt shows signs of choking will order swallow test (3) Acute on chronic kidney failure: Code(s): N17.9 - Acute kidney failure, unspecified; N18.9 - Chronic kidney disease, unspecified Status: Chronic (4) Dementia: Qualifiers: Dementia type: Parkinson's disease Dementia behavioral disturbance: without behavioral disturbance Qualified Code(s): G20 - Parkinson's disease; F02.80 - Dementia in other diseases classified elsewhere without behavioral disturbance Code(s): F03.90 - Unspecified dementia without behavioral disturbance Status: Chronic Assessment and Plan: Pt is on Quetiapine (5) Hypertension: Qualifiers: Hypertension type: essential hypertension Qualified Code(s): I10 - Essential (primary) hypertension Code(s): I10 - Essential (primary) hypertension Status: Chronic (6) Chronic anemia: Code(s): D64.9 - Anemia, unspecified Status: Inactive (7) Parkinson's disease: Code(s): G20 - Parkinson's disease Status: Acute Assessment and Plan: Carbidopa and levodopa (8) COVID-19: Code(s): U07.1 - COVID-19 Status: Acute Assessment and Plan: Pt found to be Covid positive - Tylenol for fever, albuterol for cough and sob, start course of steroids, pt not needing oxygen discused with family about possible DC they would like him to go to a facility Subjective Date/time seen: 06/06/20 15:20 Interval history: 79-year-old male with Parkinson's, dementia, hypertension, chronic kidney disease, chronic anemia, and history of falls who presented to the emergency department earlier today via private vehicle from home for evaluation of weakness. Long discussion with . pt is not needing oxygen for few days hopeful discharge, has Covid also, would like him to go to a facility. Pt does not realize he is in the hospital talking to his in the room otherwise is not in acute distress looking around in the room, siting up Review of Systems Review of Systems: All systems reviewed & are unremarkable except as noted in HPI and below Exam Narrative: Exam Narrative: General: Frail elderly male, lying in bed, some confusion today Neck: Supple. Respiratory: Respirations are clear Cardiovascular: Regular rate and rhythm with S1-S2. Gastrointestinal: Abdomen is soft, nontender, and nondistended with positive bowel sounds. Skin: dry skin pal and thin Extremities: No cyanosis, clubbing, or edema. Neurological: severe tremor Psychiatric: Some cooperation but pleasantly confused Objective Data Vital Signs Vital Signs: Vital Signs - 24 hr 06/05/20 16:00 06/05/20 21:36 06/05/20 23:57 Temperature 36.7 C 36.4 C 35.9 C L Pulse Rate 75 73 58 L Respiratory Rate 18 20 20 Blood Pressure 177/87 H 143/94 H 154/75 H Pulse Oximetry 100 96 98 06/06/20 03:44 06/06/20 05:18 06/06/20 08:00 Temperature 36.2 C L 35.9 C L 37.4 C Pulse Rate 65 58 L 86 Respiratory Rate 20 20 18 Blood Pressure 138/61 154/75 H 144/61 H Pulse Oximetry 96 98 97 Intake/Output Intake/Output: Intake & Output 06/03/20 06/04/20 06/05/20 06/06/20 23:59 23:59 23:59 23:59 Intake Total 1700 2670 970 840 Output Total 100 Balance 1700 2570 970 840 Meds/Results Medications: Active Medications Generic Name Dose Route Start Last Admin Trade Name Freq PRN Reason Stop Dose Admin Acetaminophen 650 mg 06/04/20 16:33 06/04/20 17:43 Acetaminophen 325 Mg Tablet PO 650 mg QID PRN Administration Mild Pain (1-3) or Fever
[2020-06-06] MEDS: ENOXAPARIN 40 MG/0.4 ML SYRINGE SUB-Q (17:05)
[2020-06-06] MEDS: QUEtiapine FUMARATE 25 MG TABLET PO (17:06)
[2020-06-06] MEDS: QUEtiapine FUMARATE 12.5 MG TABLET PO (20:48)
[2020-06-07 06:00] VITALS: BP 130/63; PULSE 73; RESP 20; TEMP 36.4; O2SAT 91
[2020-06-07 08:00] VITALS: BP 142/79; PULSE 75; RESP 18; TEMP 36.6; O2SAT 96
[2020-06-07] MEDS: DEXAMETHASONE 2 MG TABLET 6 MG PO (08:29)
[2020-06-07] MEDS: CARBIDOPA/LEVODOPA 25/100 MG TABLET 2 TABLET PO ×3 (08:30→17:33)
[2020-06-07] MEDS: ASPIRIN 81 MG CHEWABLE TABLET 162 MG PO (08:30)
[2020-06-07] MEDS: DOCUSATE SODIUM 100 MG CAPSULE PO (08:30)
[2020-06-07] MEDS: MEMANTINE 10 MG TABLET PO ×2 (08:31→21:14)
[2020-06-07] MEDS: lisinopriL 5 MG TABLET PO (08:31)
[2020-06-07] MEDS: DONEPEZIL HCL 10 MG TABLET PO ×2 (08:31→21:14)
[2020-06-07 12:00] VITALS: BP 134/60; PULSE 74; RESP 18; TEMP 37.1; O2SAT 94
--- NOTE | 2020-06-07 14:03 | PM.DS ---
DS: Admitting Diagnosis Admitting Diagnosis Admitting Diagnosis: Weakness DS: Discharge Diagnosis Discharge Diagnosis (1) Pneumonia: Code(s): J18.9 - Pneumonia, unspecified organism Status: Acute Assessment and Plan: Pt is on iv rocephin and doxycycline, CXR shows left sided pneumonia discharge on oral doxycycline, pt is doing well off oxygen. (2) Generalized weakness: Code(s): R53.1 - Weakness Status: Acute Assessment and Plan: Encourage soft food orally no need for feeding tube, if pt shows signs of choking, can have a swallow test (3) Acute on chronic kidney failure: Code(s): N17.9 - Acute kidney failure, unspecified; N18.9 - Chronic kidney disease, unspecified Status: Chronic Assessment and Plan: Creat is 1.3 on admission (4) Dementia: Qualifiers: Dementia type: Parkinson's disease Dementia behavioral disturbance: without behavioral disturbance Qualified Code(s): G20 - Parkinson's disease; F02.80 - Dementia in other diseases classified elsewhere without behavioral disturbance Code(s): F03.90 - Unspecified dementia without behavioral disturbance Status: Chronic Assessment and Plan: Pt is on Quetiapine, pleasantly confused (5) Hypertension: Qualifiers: Hypertension type: essential hypertension Qualified Code(s): I10 - Essential (primary) hypertension Code(s): I10 - Essential (primary) hypertension Status: Chronic (6) Chronic anemia: Code(s): D64.9 - Anemia, unspecified Status: Inactive (7) Parkinson's disease: Code(s): G20 - Parkinson's disease Status: Acute Assessment and Plan: Carbidopa and levodopa (8) COVID-19: Code(s): U07.1 - COVID-19 Status: Acute Assessment and Plan: Pt found to be Covid positive - Tylenol for fever, albuterol for cough and sob, start course of steroids, pt not needing oxygen discused with family about discharge they would like him to go to a facility. Pt was found to be covid positive on 06/03/20. remains positive until 06/14/2020. Social distancing, wear mask and wash hands around patient. Pt watched in the hospital not needed oxygen for 3 days, stable for discharge. DS: Summary Hospital Course Hospital Course: 79-year-old male with Parkinson's, dementia, hypertension, chronic kidney disease, chronic anemia, and history of falls who presented to the emergency department earlier today via private vehicle from home for evaluation of weakness. Long discussion with . Pt is not needing oxygen for few days hopeful discharge today to [facility]. Pt does not realize he is in the hospital talking to his in the room otherwise is not in acute distress looking around in the room, siting up, pleasantly confused. not in any distress. Time Spent with Patient Time attestation: Total time spent providing and/or coordinating discharge services:40 minutes on day of discharge Exam Narrative: Exam Narrative: General: Frail elderly male, lying in bed, pleasantly confused, blindness Neck: Supple. Respiratory: Respirations are clear Cardiovascular: Regular rate and rhythm with S1-S2. Gastrointestinal: Abdomen is soft, nontender, and nondistended with positive bowel sounds. Skin: dry skin pal and thin Extremities: No cyanosis, clubbing, or edema. Neurological: Mild tremor Psychiatric: Some cooperation but pleasantly confused DS: Data Data Completed and Pending Labs on day of discharge: Preliminary micro results at discharge 06/03/20 10:11 Blood Culture - Preliminary Blood 06/03/20 10:59 Blood Culture - Preliminary Blood Discharge Plan Discharge Attending physician on discharge: Brooke Haq Discharging Clinician: Brooke Haq Anticipated Discharge Date/Time: 06/07/20 15:00 Patient Disposition: SNF Activity: as tolerated Diet: other - see discharge
--- NOTE | 2020-06-07 14:40 | PC.NURSE ---
Notified Cecy GUO that [facility]. General update given and all questions answered per Cecy GUO.
[2020-06-07 16:00] VITALS: BP 131/64; PULSE 70; RESP 18; TEMP 37.1; O2SAT 96
[2020-06-07] MEDS: ENOXAPARIN 40 MG/0.4 ML SYRINGE SUB-Q (17:33)
[2020-06-07] MEDS: QUEtiapine FUMARATE 25 MG TABLET PO (17:33)
[2020-06-07 20:00] VITALS: BP 138/75; PULSE 63; RESP 20; TEMP 36.8; O2SAT 94
[2020-06-07] MEDS: QUEtiapine FUMARATE 12.5 MG TABLET PO (21:14)
--- NOTE | 2020-06-07 22:54 | PC.NURSE ---
2135 PT'[facility] TRE [facility]CH[facility]. i GAVE HER A PATIENT UPDATE AND MADE HER AWARE OF ETA FOR [facility] FOR TRANSPORT. SHE VERBALIZED UNDERSTANDING.
[2020-06-08] VITALS: BP 138/80; PULSE 68; RESP 20; TEMP 36.6; O2SAT 95
== END 2020-06-08 04:24 | DRG 177 ==
LOC: ANHED 12:01 → ANH3MEDSUR 06-04 12:57
PROVIDERS: Physician Assistant; Admitting Provider Family Medicine; Emergency Provider Emergency Medicine; PCP Family Medicine; Visit Provider Family Medicine
DX: U07.1 COVID-19 (principal); J12.82 Pneumonia due to coronavirus disease 2019; N17.9 Acute kidney failure, unspecified; G20 Parkinson's disease; F02.80 Dementia in other diseases classified elsewhere, unspecified severity, without behavioral disturbance, psychotic disturbance, mood disturbance, and anxiety; I12.9 Hypertensive chronic kidney disease with stage 1 through stage 4 chronic kidney disease, or unspecified chronic kidney disease; N18.30 Chronic kidney disease, stage 3 unspecified; D64.9 Anemia, unspecified; R53.1 Weakness; Z79.82 Long term (current) use of aspirin; Z79.899 Other long term (current) drug therapy; Z91.81 History of falling; Z98.41 Cataract extraction status, right eye; Z98.42 Cataract extraction status, left eye
CPT/HCPCS: 36415; 70450; 71045; 80048; 80053; 81001; 82728; 83605; 83615; 83735; 84443; 85025; 86140; 87040; 93005; 96360; 99285; A9270; C9803; J0360; J0456; J0696; J1650; J7030; J8540; U0003; U0005

== ENCOUNTER 2020-09-01 11:38 | Emergency (ER) | payer MEDICARE, SELFPAY ==
--- NOTE | ~2020-09-01 | XR_ITS ---
[XR ribs RT 2V w CXR 2V ] INDICATION: Right rib pain after recent fall TECHNIQUE: Frontal projection of the upper right ribs, frontal projection of the lower right ribs, ob lique projection of all the right ribs, frontal inspiratory and lateral chest x-ray for interpretatio n. FINDINGS: There are acute right eighth and ninth rib fractures. There are no soft tissue abnormality seen. The lungs are clear. No pneumothorax. Osteopenia. There is diffuse idiopathic skeletal hypero stosis (DISH) of the thoracic spine. There are scattered calcified granulomas. IMPRESSION: 1: Acute right eighth and ninth rib fractures. Reviewed, dictated and finalized at location A.
[2020-09-01 11:49] VITALS: BP 116/66; PULSE 57; RESP 16; TEMP 36; O2SAT 100
--- NOTE | 2020-09-01 12:33 | ED.FALL ---
HPI - Fall General Chief Complaint: Fall Stated Complaint: FALL/R RIB PAIN Source: patient and RN notes reviewed Limitations: no limitations History of Present Illness HPI Narrative: The patient, who lives at home and is almost total assist, presents with rib pain. Family states about a half ago a week ago he slipped and fell striking some furnishings. Since then, spouse has noticed sl. bruised and healing right rib and pain with movement or deep breathing. No fever, cough, other injuries; patient developed Covid in June and after 5-day hospitalization was sent to nursing rehab for a month . He has been home this month since and is feeble-which is unchanged; they would also like urinalysis check since he has had a prior UTI. Patient and family advised to go to hospital if worsens for higher level testing Related Data Home Medications Medication Instructions Recorded Confirmed memantine 10 mg tablet 10 mg PO BID 03/09/19 09/01/20 carbidopa 25 mg-levodopa 100 mg 2 tablet PO TID tablet 03/13/19 09/01/20 tablet quetiapine 25 mg tablet 25 mg PO BID tablet 06/12/19 09/01/20 docusate sodium [Colace] 100 mg PO DAILY 12/20/19 09/01/20 sennosides-docusate sodium 1 tab-cap PO HS PRN 12/20/19 09/01/20 [Senna-S] aspirin 325 mg tablet 325 mg PO DAILY 01/02/20 09/01/20 donepezil 10 mg tablet 10 mg PO BID tablet 01/02/20 09/01/20 latanoprost 1 drp EACH EYE HS 09/01/20 09/01/20 Allergies Allergy/AdvReac Type Severity Reaction Status Date / Time No Known Allergies Allergy Verified 09/01/20 11:56 Review of Systems Review of Systems: Narrative: General/Constitutional: No weight loss,fever Eyes: N0: Redness,discharge Ears/Nose/Throat: No: Epistaxis,ear discharge Respiratory: Denies: Hemoptysis Gastrointestinal: No Vomiting, Bleeding-rectal Skin: No Lumps, eruption Neurologic: No Focal Weakness,Sz Hematologic: Denies: Petechiae/Purpura Psychiatric: No: Suicida ideationl All Other Systems: Reviewed and Negative [facility] Past Medical History Medical History Chronic anemia Chronic kidney disease, stage 3 Baseline creatinine is 1.30. Dementia Hypertension Parkinson's disease Recurrent falls Including a fall down the stairs in August 2017 in which he sustained left 5th through 10th rib fractures, pneumothorax, and left patellar fracture. Surgical History Surgical History History of bilateral cataract extraction History of prostate surgery Previous back surgery Family History Family History Father Hypertension Grandparent Family history of Alzheimer's disease Mother Family history of Alzheimer's disease Social History Social History Social History: Surrogate decision maker: Cecy Wright, . Code status: Full code. Smoking status: Never smoker Second hand tobacco smoke exposure: No Smoking end date: 04/26/78 Alcohol intake: never Substance use: never Substance use type: does not use Additional living arrangements comments: Resides with his spouse in [place]. Gender identity (if verbalized by the patient): Male Spiritual care concerns: No Agree to blood products: Yes Comments At time of signature, agree with nursing past medical, surgical, social and family history. There is no relevant family history pertinent to the presenting complaint Exam Narrative: Exam Narrative: General Appearance: Feeble, older than stated age appearing in wheelchair, no distress EYE: PERRLA, Conjunctiva clear Ears: External ear normal Nose: Normal nose Mouth/Throat: Normal appearing, Normal lips Neck: Supple Skin: Warm, Dry, tender right ribs T8-9 Respiratory: Airway patent, No respiratory distress, decreased BS at bases, Cardiovascular: RRR Abd
== END 2020-09-01 13:38 | disposition home or self-care (01) ==
PROVIDERS: Emergency Provider Emergency Medicine; PCP Physician Assistant
DX: S22.41XA Multiple fractures of ribs, right side, initial encounter for closed fracture (principal); W01.190A Fall on same level from slipping, tripping and stumbling with subsequent striking against furniture, initial encounter; G20 Parkinson's disease; F02.80 Dementia in other diseases classified elsewhere, unspecified severity, without behavioral disturbance, psychotic disturbance, mood disturbance, and anxiety; I12.9 Hypertensive chronic kidney disease with stage 1 through stage 4 chronic kidney disease, or unspecified chronic kidney disease; Z98.42 Cataract extraction status, left eye; Z98.41 Cataract extraction status, right eye; D64.9 Anemia, unspecified
CPT/HCPCS: 71046; 71100; 81003; 99213; G0463

== ENCOUNTER 2020-10-06 14:40 | Emergency (ER) | payer MEDICARE, SELFPAY ==
--- NOTE | ~2020-10-06 | CT_ITS ---
EXAMINATION: CT brain wo con DATE: 10/06/2020 15:32 INDICATION: Fall with posterior head injury TECHNIQUE: Computed tomography (CT) of the head was performed without intravenous contrast. Sagittal and coronal reconstructions were performed. The mA was adjusted according to patient size. Iterative reconstruction technique was employed. The dose-length product was 681.00 mGy-cm. COMPARISON: head CT dated 06/03/2020 FINDINGS: No fracture. No acute intracranial hemorrhage, acute infarction or abnormal extra axial fluid collect ion. There is mild to moderate scattered white matter hypoattenuation consistent with chronic small v essel ischemic disease. Symmetric prominence of the sulci and ventricles consistent with moderate age -appropriate diffuse cerebral volume loss. No mass/mass effect. Changes of bilateral intraocular lens replacement. The orbits and mastoid air cells are normal. Mild mucosal thickening in the paranasal s inuses and prominent mucous retention cyst in the left maxillary sinus. IMPRESSION: 1. No fracture or acute intracranial process. 2. Age-related changes including moderate volume loss and mild to moderate scattered white matter hyp oattenuation consistent with chronic small vessel ischemic disease. Reviewed, dictated and finalized at location A. IMPRESSION: 1. No fracture or acute intracranial process. 2. Age-related changes including moderate volume loss and mild to moderate scat tered white matter hypoattenuation consistent with chronic small vessel ischemi c disease.
--- NOTE | ~2020-10-06 | XR_ITS ---
EXAMINATION: XR ribs RT 2V w CXR 2V DATE: 10/06/2020 15:44 INDICATION: Transient alteration of awareness. Fall. TECHNIQUE: AP and lateral views of the chest and 4 views of the right ribs were obtained. COMPARISON: Chest radiograph dated 09/01/2020 FINDINGS: 1-2 cortical widths displacement of lateral fractures of the right eighth, ninth and 10th ribs. Multi ple small calcified nodules scattered throughout both lungs consistent with old granulomatous disease . No focal airspace opacities, pulmonary edema, pleural effusion or pneumothorax. Cardiomediastinal s ilhouette is normal. Mild thoracic dextroscoliosis with moderate spondylosis. Mild lumbar levorotosco liosis with severe spondylosis. There are bridging osteophytes at multiple levels in the spine, consi stent with diffuse idiopathic skeletal hyperostosis (DISH). Old healed fracture of the lateral left c lavicle. IMPRESSION: 1. Mildly displaced lateral right eighth-10th rib fractures. 2. No acute cardiopulmonary disease. Reviewed, dictated and finalized at location A.
[2020-10-06 14:44] VITALS: BP 116/64; PULSE 55; RESP 12; TEMP 36.6; O2SAT 98
--- NOTE | 2020-10-06 14:45 | ED.FALL ---
HPI - Fall General Chief Complaint: Fall Stated Complaint: fall Time Seen by Provider: 10/06/20 14:45 History of Present Illness HPI Narrative: 79 yo male w/ h/o dementia and parkinson's disease presents to the ED for weakness and falls. His reports that she recently moved him into memory care. Since that he has become weaker and is no longer able to walk independently. He has had multiple falls. This includes one yesterday after which he was complaining of pain in the right chest. He had previous recent 8,9 rib fractures. He reportedly complained of posterior head pain some time. He has no complaints at this time. She is not aware of any other illness. Related Data Home Medications Medication Instructions Recorded Confirmed memantine 10 mg tablet 10 mg PO BID 03/09/19 09/01/20 carbidopa 25 mg-levodopa 100 mg 2 tablet PO TID tablet 03/13/19 09/01/20 tablet quetiapine 25 mg tablet 25 mg PO BID tablet 06/12/19 09/01/20 docusate sodium [Colace] 100 mg PO DAILY 12/20/19 09/01/20 sennosides-docusate sodium 1 tab-cap PO HS PRN 12/20/19 09/01/20 [Senna-S] aspirin 325 mg tablet 325 mg PO DAILY 01/02/20 09/01/20 donepezil 10 mg tablet 10 mg PO BID tablet 01/02/20 09/01/20 latanoprost 1 drp EACH EYE HS 09/01/20 09/01/20 Allergies Allergy/AdvReac Type Severity Reaction Status Date / Time oxycodone AdvReac Confusion Verified 10/06/20 14:50 Review of Systems Review of Systems: ROS unobtainable: Yes unobtainable due to mental status [facility] Past Medical History Medical History Chronic anemia Chronic kidney disease, stage 3 Baseline creatinine is 1.30. Dementia Hypertension Parkinson's disease Recurrent falls Including a fall down the stairs in August 2017 in which he sustained left 5th through 10th rib fractures, pneumothorax, and left patellar fracture. Surgical History Surgical History History of bilateral cataract extraction History of prostate surgery Previous back surgery Family History Family History Father Hypertension Grandparent Family history of Alzheimer's disease Mother Family history of Alzheimer's disease Social History Social History Social History: Surrogate decision maker: Cecy Wright, . Code status: Full code. Smoking status: Never smoker Second hand tobacco smoke exposure: No Smoking end date: 04/26/78 Alcohol intake: never Substance use: never Substance use type: does not use Additional living arrangements comments: Resides with his spouse in [place]. Gender identity (if verbalized by the patient): Male Spiritual care concerns: No Agree to blood products: Yes Exam Const: General: healthy appearing, no acute distress and alert Nutritional Appearance: well nourished Other: oriented x1 HENMT: Head: normal to inspection, no contusions and no lacerations Mouth: Yes dry mucous membranes Eyes: Pupils: Equal, round and reactive pupils present EOM: EOMs intact bilaterally Neck: Neck: normal visual inspection and no lymphadenopathy Chest: Chest palpation & inspection: tenderness rib (right ) Resp: Effort & Inspection: normal respiratory effort Auscultation: clear to auscultation bilaterally, no rales, no rhonchi and no wheezes Cardio: Jugular venous distension: no JVD Rate: regular rate Rhythm: regular rhythm Heart sounds: no murmurs GI: Inspection: non-distended GI Palp: Yes Soft to palpation and No Tenderness to palpation present (GI) Skin: General skin exam: normal color Neuro: General: patient oriented x3, moves all extremities, no focal motor deficits and CN's II-XI intact bilaterally Speech: normal speech Extrem: General: no edema Psych: Appearance: well kempt Affect: normal affect Course V
--- NOTE | 2020-10-06 15:01 | ECG_ITS ---
Measurements Intervals [place] Rate: 56 P: 95 [place]: 158 QRS: -4 QRSD: 89 T: 8 QT: 427 QTc: 414 Interpretive Statements SINUS BRADYCARDIA BORDERLINE T WAVE ABNORMALITY- INFERIOR LEADS BASELINE WANDER- V3-V4 BORDERLINE ECG Electronically Signed On 10-06-2020 18:00:41 CDT by Raj Pablo D.O.
[2020-10-06] MEDS: SODIUM CHLORIDE 0.9% IV 1,000 ML 999 ML IV CONT (16:09)
[2020-10-06 16:14] LABS: Basophils Percent Auto 0.1 % (0.2-1.2); Eosinophils Absolute Auto 0.2 K/mm3 (0-0.3); Eosinophils Percent Auto 2.1 % (0-4.4); Hematocrit 38.4 % (42.0-52.0); Hemoglobin 12.1 g/dL (14.0-18.0); Immature Granulocyte Absolute 0.02 K/mm3 (0.00-0.031); Immature Granulocyte Percent A 0.3 % (0-0.5); Lymphocytes Absolute Auto 0.84 K/mm3 (0.9-3.2); Lymphocytes Percent Auto 11.6 % (18.3-44.2); Mean Corpuscular HGB Conc 31.5 g/dl (32-36); Mean Corpuscular Hemoglobin 28.7 pg (26-34); Mean Platelet Volume 11.2 fl (7.4-10.4); Monocytes Absolute Auto 0.7 K/mm3 (0.1-0.6); Monocytes Percent Auto 10.1 % (2.6-8.5); Neutrophils Absolute Auto 5.5 K/mm3 (1.3-6.7); Neutrophils Percent Auto 75.8 % (45.5-73.1); Platelet Count Result 177 k/mm3 (150-375); Red Blood Count 4.22 M/mm3 (4.6-6.20); Red Cell Distribution Width 14.1 % (11.5-14.5); White Blood Count 7.2 K/mm3 (4.5-10.0)
[2020-10-06 16:23] LABS: INR 1.1; Prothrombin Time 14.7 Seconds (11.1-14.7)
[2020-10-06 16:24] LABS: Albumin Level 3.5 g/dL (3.5-5.1); Alkaline Phosphatase 88 U/L (38-126); Anion Gap 6 mmol/L (8-16); Aspartate Amino Transferase 18 U/L (17-59); Bilirubin,Total 0.3 mg/dL (0.2-1.3); Blood Urea Nitrogen 27 mg/dL (9-20); Calcium 8.6 mg/dL (8.4-10.2); Carbon Dioxide 28 mmol/L (22-30); Chloride 110 mmol/L (98-107); Estimated CRCL calculation 28 ml/min; Estimated Glomerular Filt Rate 45; Glucose 123 mg/dL (75-110); Partial Thromboplastin Time 30.8 SECONDS (22.3-36.8); Potassium 4.7 mmol/L (3.4-5.0); Sodium 144 mmol/L (137-145)
[2020-10-06 16:25] LABS: Lactic Acid Reflex 1.4 mmol/L (0.7-2.1)
[2020-10-06 16:39] LABS: Add Urine Microscopic? YES; Appearance Urine Clear (Clear); Bacteria Urine Trace /hpf; Bilirubin Urine Negative (Negative); Blood Urine Negative (Negative); Color Urine Yellow (Yellow); Glucose Urine UA 1+ mg/dL (Negative); Ketones Urine Trace mg/dL (Negative); Leukocyte Esterase Ur Negative LEU/UL (Negative); Mucus Urine Rare /lpf; Nitrate Urine Negative (Negative); Protein Urine 1+ mg/dL (Negative); Specific Grav Ur 1.023 (1.001-1.035); Squamous Epithelial Cell Urine Rare /hpf (Few); Urobilinogen Urine Negative mg/dL (<2.0); WBC Urine 0-3 /hpf
[2020-10-06 16:44] LABS: Glucose Point of Care 113 mg/dl (65-105)
[2020-10-06 17:04] LABS: Alanine Aminotransferase < 6 U/L (4-50)
[2020-10-06 17:57] VITALS: BP 132/66; PULSE 76; RESP 18; O2SAT 99
== END 2020-10-06 17:59 ==
PROVIDERS: Emergency Provider Emergency Medicine; PCP Internal Medicine
DX: E86.0 Dehydration (principal); S22.41XA Multiple fractures of ribs, right side, initial encounter for closed fracture; I12.9 Hypertensive chronic kidney disease with stage 1 through stage 4 chronic kidney disease, or unspecified chronic kidney disease; N18.30 Chronic kidney disease, stage 3 unspecified; G31.83 Neurocognitive disorder with Lewy bodies; F02.80 Dementia in other diseases classified elsewhere, unspecified severity, without behavioral disturbance, psychotic disturbance, mood disturbance, and anxiety; W19.XXXA Unspecified fall, initial encounter
CPT/HCPCS: 36415; 70450; 71046; 71100; 80053; 81001; 82948; 83605; 85025; 85610; 85730; 93005; 96360; 99284; J7030

== ENCOUNTER 2020-10-19 20:08 | Emergency (ER) | payer MEDICARE, SELFPAY ==
--- NOTE | ~2020-10-19 | CT_ITS ---
EXAMINATION: CT lumbar spine wo con DATE: 10/19/2020 20:43 INDICATION: Low back injury and pain. TECHNIQUE: Computed tomography (CT) of the lumbar spine was performed without intravenous contrast. A utomated exposure control and iterative reconstruction technique were employed. The dose-length produ ct was 681.00 mGy-cm. COMPARISON: CT lumbar spine 08/07/2018 FINDINGS: There is a small right pleural effusion. The prostate is mildly enlarged. The bladder demon strates a trabeculated wall with diverticula. There is 3 degrees levoscoliosis of lumbar spine. There is 3 mm anterolisthesis of L4 on L5. There is a compression fracture of L4 with 1/5 loss of height. There is mildly decreased disc height at L1-L2, severely decreased disc height at L2-L3, moderately d ecreased disc height at L3-L4, mildly decreased disc height at L4-L5, and severely decreased disc hei ght at L5-S1 with endplate remodeling. There are healing right-sided rib fractures with callus format ion. The following disc levels are specifically discussed: L1-L2: The disc is bulging. There is mild right and moderate left facet joint osteoarthritis. There i s mild left neural foraminal stenosis. There is mild central canal stenosis. L2-L3: The disc is bulging. There is mild bilateral facet joint osteoarthritis. There is moderate rig ht and mild left neural foraminal stenosis. There is mild central canal stenosis. L3-L4: There is bulging. There is moderate right and severe left facet joint osteoarthritis. There is mild right and moderate left neural foraminal stenosis. There is mild central canal stenosis. L4-L5: The disc is bulging. There is severe bilateral facet joint osteoarthritis. There is moderate b ilateral neural foraminal stenosis. There is mild central canal stenosis. L5-S1: The disc is bulging. There is moderate right and severe left facet joint osteoarthritis. There is mild right and moderate left neural foraminal stenosis. There is mild central canal stenosis. IMPRESSION: 1. Acute L4 compression fracture. 2. Severe lumbar spondylosis. 3. Lumbar levoscoliosis. 4. Small right pleural effusion. Reviewed, dictated and finalized at location A.
--- NOTE | ~2020-10-19 | CT_ITS ---
EXAMINATION: CT brain wo con DATE: 10/19/2020 20:43 INDICATION: Head injury. TECHNIQUE: Computed tomography (CT) of the head was performed without intravenous contrast. The mA wa s adjusted according to patient size. Iterative reconstruction technique was employed. The dose-lengt h product was 681.00 mGy-cm. COMPARISON: Head CT 10/06/2020 FINDINGS: There are scattered areas of low attenuation in the cerebral white matter. There is no intr acranial hemorrhage, acute infarction, or abnormal intracranial mass lesion. The ventricles are mallika l in size. There is a mucous retention cyst in left maxillary sinus. The mastoid air cells are normal . There are likely changes of ocular lens replacement surgeries. IMPRESSION: 1. Stable mild nonspecific cerebral white matter disease, which likely represents chronic small vesse l ischemic disease. Reviewed, dictated and finalized at location A. IMPRESSION: 1. Stable mild nonspecific cerebral white matter disease, which likely represen ts chronic small vessel ischemic disease.
--- NOTE | ~2020-10-19 | XR_ITS ---
XR hip RT 2V w AP pelvis 10/19/2020 23:44 Indication: Right hip pain after fall Procedure: 3 views right hip including AP pelvis Comparison: 06/15/2019 Findings: Pelvic rings are intact. Sacral foramen are symmetric. Mild osteoarthritis of the hips. No acute fracture, subluxation or dislocation.. Impression: 1: No acute fracture. Reviewed, dictated and finalized at location A. Impression: 1: No acute fracture.
[2020-10-19 20:10] VITALS: BP 162/71; PULSE 58; RESP 16; TEMP 36.6; O2SAT 100
--- NOTE | 2020-10-19 20:10 | ED.BACK ---
HPI - Back Pain/Injury General Chief Complaint: Fall Stated Complaint: lower back pain History of Present Illness HPI Narrative: 79 yo w/ h/o parkinson's, dementia, multiple falls presents to the ED for back pain after a fall. He reportedly had a recent fall at the shelter. Since that time complaining of low back pain. His says that he also seemed have some pain in the right hip. In add ition to these injuries. He was seen here with multiple rib fractures recently. He denies any complaints. History is significantly limited by dementia. Related Data Home Medications Medication Instructions Recorded Confirmed memantine 10 mg tablet 10 mg PO BID 03/09/19 09/01/20 carbidopa 25 mg-levodopa 100 mg 2 tablet PO TID tablet 03/13/19 09/01/20 tablet quetiapine 25 mg tablet 25 mg PO BID tablet 06/12/19 09/01/20 docusate sodium [Colace] 100 mg PO DAILY 12/20/19 09/01/20 sennosides-docusate sodium 1 tab-cap PO HS PRN 12/20/19 09/01/20 [Senna-S] aspirin 325 mg tablet 325 mg PO DAILY 01/02/20 09/01/20 donepezil 10 mg tablet 10 mg PO BID tablet 01/02/20 09/01/20 latanoprost 1 drp EACH EYE HS 09/01/20 09/01/20 aspirin [Adult Low Dose Aspirin] 81 mg PO DAILY 10/19/20 baclofen mg 10/19/20 melatonin 6 mg PO HS PRN 10/19/20 methocarbamol 500 mg PO HS 10/19/20 tramadol 50 mg PO HS 10/19/20 Allergies Allergy/AdvReac Type Severity Reaction Status Date / Time oxycodone AdvReac Confusion Verified 10/19/20 20:21 Review of Systems Review of Systems: ROS unobtainable: Yes unobtainable due to mental status [facility] Past Medical History Medical History Chronic anemia Chronic kidney disease, stage 3 Baseline creatinine is 1.30. Dementia Hypertension Parkinson's disease Recurrent falls Including a fall down the stairs in August 2017 in which he sustained left 5th through 10th rib fractures, pneumothorax, and left patellar fracture. Surgical History Surgical History History of bilateral cataract extraction History of prostate surgery Previous back surgery Family History Family History Father Hypertension Grandparent Family history of Alzheimer's disease Mother Family history of Alzheimer's disease Social History Social History Social History: Surrogate decision maker: Cecy Wright, . Code status: Full code. Smoking status: Never smoker Second hand tobacco smoke exposure: No Smoking end date: 04/26/78 Alcohol intake: never Substance use: never Substance use type: does not use Additional living arrangements comments: Resides with his spouse in [place]. Gender identity (if verbalized by the patient): Male Spiritual care concerns: No Agree to blood products: Yes Exam Const: General: healthy appearing, no acute distress and alert Orientation/consciousness: patient oriented x3 HENMT: Head: normal to inspection and no contusions Eyes: Pupils: Equal, round and reactive pupils present Neck: Neck: normal visual inspection Resp: Effort & Inspection: normal respiratory effort Auscultation: clear to auscultation bilaterally Cardio: Rate: regular rate Rhythm: regular rhythm GI: Other: nontender Back/Spine/Pelvis: Cervical Spine: No Cervical spine tenderness Thoracic/Lumbar Spine: thoracic and lumbar spine normal to inspection and lumbar spinal tenderness at L4 and at L5 Pelvis: no pain with anterior-posterior compression and no pain with lateral compression Skin: General skin exam: normal color Wounds: no wounds Neuro: General: moves all extremities, no focal motor deficits and CN's II-XI intact bilaterally Speech: normal speech Other: oriented x2 Extrem: General: normal to inspection Psych: Affect: normal affect Course Vital Sign
--- NOTE | 2020-10-19 20:42 | PC.NURSE ---
pt to imaging, at bedside at this time.
[2020-10-19 21:10] VITALS: BP 161/84; PULSE 62; RESP 16; O2SAT 100
[2020-10-20 01:22] VITALS: BP 177/85; PULSE 63; RESP 16; O2SAT 100
== END 2020-10-20 01:35 | disposition home or self-care (01) ==
PROVIDERS: Emergency Provider Emergency Medicine; PCP Internal Medicine
DX: S32.048A Other fracture of fourth lumbar vertebra, initial encounter for closed fracture (principal); G20 Parkinson's disease; F03.90 Unspecified dementia, unspecified severity, without behavioral disturbance, psychotic disturbance, mood disturbance, and anxiety; Z79.82 Long term (current) use of aspirin; I12.9 Hypertensive chronic kidney disease with stage 1 through stage 4 chronic kidney disease, or unspecified chronic kidney disease; N18.30 Chronic kidney disease, stage 3 unspecified; D64.9 Anemia, unspecified; Z98.42 Cataract extraction status, left eye; Z98.41 Cataract extraction status, right eye; Z87.891 Personal history of nicotine dependence; R90.82 White matter disease, unspecified; M47.816 Spondylosis without myelopathy or radiculopathy, lumbar region; W19.XXXA Unspecified fall, initial encounter
CPT/HCPCS: 70450; 72131; 73502; 99284

== ENCOUNTER 2020-10-24 15:18 | Emergency (ER) | payer MEDICARE, SELFPAY ==
--- NOTE | ~2020-10-24 | CT_ITS ---
EXAMINATION: CT brain wo con INDICATION: Head injury COMPARISON: 10/19/2020 TECHNIQUE: Standard unenhanced head CT. The dose-length product (DLP) was 605.33 mGy-cm. The mA was a djusted according to patient size. Iterative reconstruction technique was employed. FINDINGS: There is no acute intraparenchymal hemorrhage. No evidence of mass lesion. No evidence of a cute infarction. There is mild periventricular and subcortical hypodensity probably related to small vessel ischemic disease. There is mild prominence of the sulci and ventricles related to cerebral atr ophy. Intracranial calcified cerebral atherosclerosis is noted. There are no extra-axial collections. There is no mass effect or midline shift. Changes in the globes are likely from ocular lens surgery. There is a polyp or mucous retention cyst in the left maxillary sinus. IMPRESSION: 1. No acute intracranial abnormality. 2. Age related findings. Reviewed, dictated and finalized at location B.
--- NOTE | ~2020-10-24 | CT_ITS ---
EXAMINATION: CT cervical spine wo con EXAM DATE: 10/24/2020 16:11 INDICATION: Fall with head injury. TECHNIQUE: Spiral CT of the cervical spine was performed without contrast. Axial images were reviewe d. Coronal and sagittal reformatted images cervical spine were also reviewed. The dose-length produc t (DLP) for this examination was 112.50 mGy-cm. The exposure was tailored according to patient size (auto mA exposure control), and iterative reconstruction (ASIR) was used as additional dose reduction technique. Comparison is made to prior examination from 07/23/2014. FINDINGS: There is no evidence of acute cervical fracture. The odontoid process is intact. Pre-dens space is normal. Prevertebral soft tissue is normal. There are no soft tissue abnormalities identi fied. There is no disc space widening or traumatic vertebral body subluxation suspected. Overall mo derate cervical spondylosis. A detailed level by level evaluation of spondylosis can be added as add endum if requested. IMPRESSION: 1. No acute cervical fracture. 2. Cervical spondylosis. Reviewed, dictated and finalized at location A.
[2020-10-24 15:17] VITALS: BP 118/99; PULSE 61; RESP 13; TEMP 36.6; O2SAT 100
--- NOTE | 2020-10-24 16:43 | ED.GENADULT ---
HPI - General Adult General Chief complaint: Fall Stated complaint: Fall Time Seen by Provider: 10/24/20 15:52 Source: family () Mode of arrival: EMS Limitations: dementia History of Present Illness HPI narrative: Patient was brought in from his memory care unit by EMS after the staff found him lying on the floor next to his bed. It is unclear if he stood and fell or if he rolled to the ground. His tells me that she was with him a short time prior to feeding lunch and then she put him to bed. Patient is cooperative and awake. Does not complain of any pain at rest or with palpation. He cannot relate the incident. This is his third fall in approximately a week, the first resulting in fractured ribs on the left and the second resulting in a compression fracture at L4. Onset (ago): hour(s) Related Data Home Medications Medication Instructions Recorded Confirmed memantine 10 mg tablet 10 mg PO BID 03/09/19 09/01/20 carbidopa 25 mg-levodopa 100 mg 2 tablet PO TID tablet 03/13/19 09/01/20 tablet quetiapine 25 mg tablet 25 mg PO BID tablet 06/12/19 09/01/20 docusate sodium [Colace] 100 mg PO DAILY 12/20/19 09/01/20 sennosides-docusate sodium 1 tab-cap PO HS PRN 12/20/19 09/01/20 [Senna-S] aspirin 325 mg tablet 325 mg PO DAILY 01/02/20 09/01/20 donepezil 10 mg tablet 10 mg PO BID tablet 01/02/20 09/01/20 latanoprost 1 drp EACH EYE HS 09/01/20 09/01/20 aspirin [Adult Low Dose Aspirin] 81 mg PO DAILY 10/19/20 baclofen mg 10/19/20 melatonin 6 mg PO HS PRN 10/19/20 methocarbamol 500 mg PO HS 10/19/20 tramadol 50 mg PO HS 10/19/20 Allergies Allergy/AdvReac Type Severity Reaction Status Date / Time oxycodone AdvReac Confusion Verified 10/19/20 20:21 Review of Systems Review of Systems: ROS unobtainable: Yes unobtainable due to mental status PMFSH Past Medical History Medical History Chronic anemia Chronic kidney disease, stage 3 Baseline creatinine is 1.30. Dementia Hypertension Parkinson's disease Recurrent falls Including a fall down the stairs in August 2017 in which he sustained left 5th through 10th rib fractures, pneumothorax, and left patellar fracture. Surgical History Surgical History History of bilateral cataract extraction History of prostate surgery Previous back surgery Family History Family History Father Hypertension Grandparent Family history of Alzheimer's disease Mother Family history of Alzheimer's disease Social History Social History Social History: Surrogate decision maker: Cecy Wright, . Code status: Full code. Smoking status: Never smoker Second hand tobacco smoke exposure: No Smoking end date: 04/26/78 Alcohol intake: never Substance use: never Substance use type: does not use Additional living arrangements comments: Resides with his spouse in [place]. Gender identity (if verbalized by the patient): Male Spiritual care concerns: No Agree to blood products: Yes Exam Const: General: no acute distress, alert and confusion HENMT: Head: laceration (left parietal, ~ 6 cm and superficial.) Eyes: Pupils: Equal, round and reactive pupils present Resp: Effort & Inspection: normal respiratory effort Auscultation: clear to auscultation bilaterally Cardio: Rate: regular rate Rhythm: regular rhythm Back/Spine/Pelvis: Cervical Spine: cervical ROM normal and other (No cervical spine tenderness.) Pelvis: no pain with anterior-posterior compression and no pain with lateral compression Skin: Wounds: wounds noted (Superficial skin tears noted to his left forearm.) Neuro: General: moves all extremities and no focal motor deficits Extrem: General: no clubbing, cyanosis or edema Course Course Emergenc
[2020-10-24 17:30] VITALS: BP 127/72; PULSE 90; RESP 16; O2SAT 100
== END 2020-10-24 17:33 ==
PROVIDERS: Emergency Provider Emergency Medicine; PCP Internal Medicine
DX: S01.01XA Laceration without foreign body of scalp, initial encounter (principal); W19.XXXA Unspecified fall, initial encounter; I12.9 Hypertensive chronic kidney disease with stage 1 through stage 4 chronic kidney disease, or unspecified chronic kidney disease; N18.30 Chronic kidney disease, stage 3 unspecified; G20 Parkinson's disease
CPT/HCPCS: 12002; 70450; 72125; 99284